=== PATIENT | male | born 1965 | race Caucasian/White ===

== ENCOUNTER 2019-07-28 11:40 | Inpatient (IN) | payer OTHER ==
--- NOTE | 2019-07-28 12:07 | PDOC ---
History of Present Illness - General Chief Complaint: Difficulty with Vision Stated Complaint: VISION ISSUE Time Seen by Provider: 07/28/19 12:05 - History of Present Illness Initial Comments: HPI: 54yo M with PMH of HTN (nonadherent to medication) presenting with difficulty with vision and feeling unwell x 6 months. Patient has been nonadherent to his amlodipine 10mg daily x 1 year because his prescription ran out. He has not seen a physician over that time. Endorses chest pain that he has frequently nearly every day. Reports shortness of breath that worsens with exertion. Cannot lay flat. Has never been evaluated by a [employer] crm developer. Patient's vision has changed such that he can no longer see well and visited an eye doctor a couple days ago. The doctor evaluated him and saw "blood behind his eyes." Patient was concerned about this in addition to continuing to feel unwell, so he decided to come to the ER for further evaluation. No recent falls or syncope. PCP: None ROS: Constitutional: no fever, no chills HEENT: no throat pain, +vision changes Cardiovascular: +chest pain, no palpitations Respiratory: no cough, +shortness of breath Gastrointestinal: no abdominal pain, no nausea Genitourinary: no dysuria, no hematuria Musculoskeletal: no myalgia, no arthralgia Skin: no rash, no itching Neurologic: +headache, +weakness Psych: no agitation, no anxiety PE: General: Awake, alert, and fully oriented, in no acute distress Head: No signs of trauma Eyes: EOMI, sclera anicteric ENT: Moist mucus membranes Neck: Normal ROM, supple Lungs: Lungs clear, Normal breath sounds Cardio: Regular rhythm, S1 and S2 present Abdomen: Soft, nontender. No guarding, no rebound, no masses Extremities: Normal range of motion, Distal pulses present, No calf tenderness, No BLE edema SKIN: Warm, Dry, normal turgor Neurologic: Cranial nerves II through XII intact. Normal speech, sensation, strength, coordination, and gait. ED Course/MDM: DDX including but not limited to HTN emergency vs urgency, ACS, anemia, metabolic derangement Labs, EKG, CXR Cardiac monitoring BP control: Goal MAP reduction of 25% 07/28/19 12:07 CBC WBC 12.9 K/mm3 (4.0-10.0) H 07/28/19 12:15 RBC 4.77 M/mm3 (4.00-5.60) 07/28/19 12:15 Hgb 15.2 GM/dL (11.7-16.9) 07/28/19 12:15 Hct 42.9 % (35.4-49) 07/28/19 12:15 MCV 90.0 fl (80-96) 07/28/19 12:15 MCH 32.0 pg (25.7-33.7) 07/28/19 12:15 MCHC 35.5 g/dl (32.0-35.9) 07/28/19 12:15 RDW 12.6 % (11.9-15.9) 07/28/19 12:15 Plt Count 265 K/MM3 (134-434) 07/28/19 12:15 MPV 8.9 fl (7.5-11.1) 07/28/19 12:15 Absolute Neuts (auto) 10.0 K/mm3 (1.5-8.0) H 07/28/19 12:15 Neutrophils % 77.0 % (42.8-82.8) 07/28/19 12:15 Lymphocytes % 13.7 % (8-40) 07/28/19 12:15 Monocytes % 6.5 % (3.8-10.2) 07/28/19 12:15 Eosinophils % 1.8 % (0-4.5) 07/28/19 12:15 Basophils % 1.0 % (0-2.0) 07/28/19 12:15 Nucleated RBC % 0 % (0-0) 07/28/19 12:15 Mild leukocytosis CMP Sodium 131 mmol/L (136-145) L 07/28/19 12:15 Chloride 90 mmol/L (98-107) L 07/28/19 12:15 Carbon Dioxide 32 mmol/L (21-32) 07/28/19 12:15 Anion Gap 9 MMOL/L (8-16) 07/28/19 12:15 BUN 27.2 mg/dL (7-18) H 07/28/19 12:15 Creatinine 2.1 mg/dL (0.55-1.3) H 07/28/19 12:15 Est GFR (CKD-EPI)AfAm 40.15 07/28/19 12:15 Est GFR (CKD-EPI)NonAf 34.64 07/28/19 12:15 Random Glucose 174 mg/dL (74-106) H 07/28/19 12:15 Calcium 9.3 mg/dL (8.5-10.1) 07/28/19 12:15 Total Bilirubin 0.6 mg/dL (0.2-1) 07/28/19 12:15 AST 16 U/L (15-37) 07/28/19 12:15 ALT 20 U/L (13-61) 07/28/19 12:15 Alkaline Phosphatase 137 U/L (45-117) H 07/28/19 12:15 Creatine Kinase 76 U/L (26-308) 07/28/19 12:15 Troponin I 0.11 ng/ml (0.00-0.05) H 07/28/19 12:15 B-Natriuretic Peptide 9543.7 pg/ml (5-125) H 07/28/19 12:15 Total Protein 7.5 g/dl (6.4-8.2) 07/28/19 12:15 Albumin 3.6 g/dl (3.4-5.0) 07/28/19 12:15 Cr elevated Tpn elevated; ASA ordered BNP elevated Patient with signs of end-organ damage CT Head: "EXAM#: TYPE/EXAM: RESULT: [id number] CT/HEAD CT WITHOUT CONTRAST History of hypertension with vision changes CT scan of the head without intravenous contrast No prior is available for comparison. There is mild volume loss and ventricular dilatation. Focal encephalomalacia seen in the right frontal lobe, anteriorly/inferiorly and probably a smaller focus of encephalomalacia in the left anterior/inferior frontal lobe There is focal low- attenuation density in the anterior right thalamus/periventricular white matter compatible with a chronic infarct. There is also likely a chronic left thalamic lacunar infarct. Focal low-attenuation density in the right frontal lobe at the level of the centrum semiovale suggestive of a chronic infarct. No mass lesion, gross acute infarct or intracranial hemorrhage are identified. There is no shift of the midline structures. Mild mucoperiosteal thickening is partially opacifying the ethmoid air cells with mild deviation of the nasal septum towards the left. The mastoid air cells are well aerated and the calvarium is intact IMPRESSION: Mild volume loss and ventricular dilatation. Focal encephalomalacia in the right anterior/inferior frontal lobe and possibly a smaller focus on the left. Focal chronic infarct in the anterior right thalamus/ periventricular white matter. Focal likely chronic infarct in the right centrum semiovale. No mass lesion or gross acute infarct are identified. Correlate clinically to determine further evaluation and follow-up Reported By: Woody Phelps MD 07/28/19 1354 " CXR: " EXAM#: TYPE/EXAM: RESULT: [id number] RAD/CHEST X- RAY PORTABLE* Chest pain. Hypertension. Portable chest x-ray. Comparison study none. No evidence of widening of the superior mediastinum. The cardiac silhouette is not enlarged. Mildly tortuous thoracic aorta. The lungs are well aerated without evidence of a pulmonary infiltrates, atelectasis. No evidence of blunting of the costophrenic angles. No large pleural effusion or pneumothorax is seen. The pulmonary vasculature is normal, no evidence of CHF, pulmonary edema. Intact visualized osseous structures. EKG leads are noted. Impression. No evidence of active pulmonary disease. Reported By: Preston Jaime MD 07/28/19 1353 " Last BP 181/127 after 20mg labetolol IV Another 20mg labetolol IV ordered 07/28/19 13:59 Call from lab, K=2.8 07/28/19 14:04 EKG: rate 75, QTc 502, possible ST elevations on V1/V2/V3 Dr. Magaña contacting the interventionalist Patient without active chest pain at this time 07/28/19 14:16 Dr. Magaña in consultation with interventionalist. Plan to obtain ECHO to determine if there is anterior wall abnormality. 07/28/19 14:47 Unofficial ECHO without anterior wall abnormality Dr. Magaña discussed case with cardiac interventionalist team. Patient is not a candidate for a transfer or STEMI activation. Findings on EKG likely LVH related to end-organ damage. Also question of anticoagulation in context of "blood behind the eyes" per patient's exam with eye doctor. Patient without any idea who was the eye doctor on [address] who saw him. Does not know name or phone number of this provider. To consult ICU. 07/28/19 15:14 ICU consulted; they will evaluate the patient MB sent 07/28/19 15:29 Dr. Magaña spoke with Dr. Chavez, clinical abstractor. Patient likely has a retinal artery/vein occlusion or hypertensive retinopathy, none of which contradicts anticoagulation 07/28/19 15:42 Patient is not an ICU candidate at this time per Dr. Lee Plan for admission for hypertensive emergency indicated by SBP greated than 180mm HG with evidence of acute target organ damage as indicated by myocardial ischemia (elevated troponin), elevated creatinine, and vision abnormalities. Awaiting callback from hospitalist team 07/28/19 15:48 BP 170/113 Transitioned to PO amlodipine 07/28/19 15:[address] Hall Pending repeat EKG and tpn 07/28/19 16:[address] Siddiqui regarding patient's admission 07/28/19 16:[address] Seaman, ICU resident. In consultation with the admitting team and cardiology, it was ultimately decided that the patient be admitted to the ICU for close BP monitoring Past History - Past Medical History Allergies/Adverse Reactions: Allergies Allergy/AdvReac Type Severity Reaction Status Date / Time No Known Allergies Allergy Verified 07/28/19 11:49 Home Medications: Ambulatory Orders NK [No Known Home Medication] 07/28/19 COPD: No HTN: Yes - Surgical History Cholecystectomy: No - Immunization History Immunization Up to Date: No - Psycho Social/Smoking Cessation Hx Smoking History: Former smoker Have you smoked in the past 12 months: No Information on smoking cessation initiated: No Hx Alcohol Use: No Drug/Substance Use Hx: No *Physical Exam - Vital Signs Last Vital Signs Temp Pulse Resp BP Pulse Ox 98.2 F 92 H 16 214/147 H 97 07/28/19 11:47 07/28/19 11:47 07/28/19 11:47 07/28/19 11:47 07/28/19 11:47 ED Treatment Course - LABORATORY CBC & Chemistry Diagram: 07/28/19 12:15 07/28/19 12:15 Discharge - Discharge Information Problems reviewed: Yes Clinical Impression/Diagnosis: Hypertensive emergency Condition: Guarded - Admission Yes - Follow up/Referral - Patient Discharge Instructions - Post Discharge Activity
[2019-07-28 12:37] LABS: EOS % 1.8 % (0-4.5); HEMATOCRIT 42.9 % (35.4-49); HEMOGLOBIN 15.2 GM/dL (11.7-16.9); LYMPH % 13.7 % (8-40); MCHC 35.5 g/dl (32.0-35.9); MEAN PLT VOLUME 8.9 fl (7.5-11.1); MONO % 6.5 % (3.8-10.2); PLATELET COUNT 265 K/MM3 (134-434); RBC 4.77 M/mm3 (4.00-5.60); RDW 12.6 % (11.9-15.9); WHITE BLOOD COUNT 12.9 K/mm3 (4.0-10.0)
[2019-07-28] MEDS ORDERED: LABETALOL HCL 5 MG/1 ML (100MG/20 ML VIAL) IVPUSH ONE ×3 (12:53→19:40)
[2019-07-28] MEDS ORDERED: LABETALOL HCL 5 MG/1 ML (200MG/40ML VIAL) IVPB ONE (12:55)
[2019-07-28 12:57] LABS: INR 1.03 (0.83-1.09); PROTHROMBIN TIME (PATIENT) 12.2 SEC (9.7-13.0)
[2019-07-28 13:18] LABS: ALBUMIN 3.6 g/dl (3.4-5.0); BILIRUBIN,TOTAL 0.6 mg/dL (0.2-1); BLOOD UREA NITROGEN 27.2 mg/dL (7-18); CALCIUM 9.3 mg/dL (8.5-10.1); CREATININE 2.1 mg/dL (0.55-1.3); N-TERMINAL BNP 9543.7 pg/ml (5-125); TOT PROT 7.5 g/dl (6.4-8.2)
[2019-07-28] MEDS ORDERED: ASPIRIN 81 MG CHEWABLE TABLETS PO ONE (13:54)
[2019-07-28 14:02] LABS: POTASSIUM 2.8 mmol/L (3.5-5.1)
[2019-07-28] MEDS ORDERED: POTASSIUM CHLORIDE TABS 10 MEQ TABLET.ER (FP) PO ONE (14:07)
[2019-07-28] MEDS ORDERED: POTASSIUM CHLORIDE TABS 20 MEQ TABLET.ER (FP) PO ONE ×4 (14:17→17:48)
[2019-07-28] MEDS ORDERED: ASPIRIN 81 MG CHEWABLE TABLETS ONE (14:17)
[2019-07-28] MEDS ORDERED: POTASSIUM CHLORIDE 20 MEQ PREMIX IVPB 100 ML IVPB ONE (15:39)
[2019-07-28] MEDS ORDERED: amLODIPine BESYLATE 5 MG TABLET (FP) PO ONE ×2 (15:49→17:50)
--- NOTE | 2019-07-28 15:56 | PDOC ---
Documentation entered by Inga Gee SCRIBE, acting as scribe for Pedro Magaña MD. Pedro Magaña MD: This documentation has been prepared by the Gerard friedman Brenda, SCRIBE, under my direction and personally reviewed by me in its entirety. I confirm that the documentation accurately reflects all work, treatment, procedures, and medical decision making performed by me. Attending Attestation - Resident Resident Name: Ayaka Kirk - ED Attending Attestation I have performed the following: I have examined & evaluated the patient, The case was reviewed & discussed with the resident, I agree w/resident's findings & plan, Exceptions are as noted - HPI HPI: 07/28/19 12:59 The patient is a 54 year old male with a significant PMH of HTN who presents to the ED for evaluation of difficulty with vision for the past 6 months and feeling generally unwell. Patient reports not being compliant with his HTN medications (amlodipine), due to his prescription running out. Patient notes that he has not seen a medical doctor during that time. Patient endoeses a constant chest pain along with SOB which is aggravated by exertion he also notes orthnopea. Allergies: NKA PCP: No PCP. - Physicial Exam PE: 07/28/19 15:50 Vitals: Triage Vital signs reviewed General Appearance: No acute distress, well nourished well developed, Head: Atraumatic, Eyes: Pupils equal reactive round, extraocular movement intact Cardiac: Regular rate and rhythym, Lungs: Clear to auscultation bilateral, good air movement bilaterally, Abdomen: Soft, non distended, normal bowel sounds, non tender to palpation Extremities: Full range of motion to all extremities, no cyanosis, clubbing, or edema Skin: Warm and dry, no rashes or lesions, no rash, no petechiae Neuro: AOX3; cranial Nerves 2-12 grossly intact, strength intact to all extremities, sensation intact to all extremities, gait normal Psych: Normal mood, normal affect - Critical Care Time Total Critical Care Time: 65 Critical Care Statement: The care of this patient involved high complexity decision making to prevent further life threatening deterioration of the patient 's condition and/or to evaluate & treat vital organ system(s) failure or risk of failure. - Medical Decision Making 07/28/19 15:55 54 years old 4-month history of blurry vision no PCP saw a transport tech? Yesterday was told he had "blood behind the eye" need to see a medical doctor Also complaining of mild headache noncompliance with hypertensive medication as well as intermittent nonexertional substernal nonradiating mild chest discomfort currently chest pain-free a stat head CT was ordered which demonstrated no acute hemorrhage Interpreted by me A stat EKG was ordered which demonstrated Left axis deviation left ventricular hypertrophy with repull abnormalities questionable repull abnormalities versus ST elevations with ST depressions inferiorly EKG was sent to interventional list at [facility] a stat bedside echo was performed patient determined on the consultation of Dr. Bernard interventional not to be a candidate for acute catheterization likely changes are secondary to hypertensive emergency/chronic hypertension Laboratory analysis notable for detectable troponin elevated creatinine and low potassium Potassium repleted Case discussed with Dr. Chavez ophthalmology no indication for emergent ophthalmologic evaluation most likely patient suffers from either a venous or arterial retinal occlusion versus hypertensive retinopathy which needs to be followed as an outpatient no contraindications per Dr. Chavez to anticoagulation Aspirin given patient's blood pressure controlled with 2 doses IV labetalol now transitioned to p.o. amlodipine Cardiology has been consulted ICU has been consulted. Not a candidate for ICU at this time We will admit to medicine under telemetry for hypertensive emergency Cardiology consultation and further management. Heart Score/ECG Review - ECG Impressions Comment:: 07/28/19 15:55 EKG demonstrates left ventricular hypertrophy with repolarization abnormal ST depressions inferiorly laterally with T wave inversions Interpreted by me
[2019-07-28] MEDS ORDERED: amLODIPine BESYLATE 5 MG TABLET (FP) ONE ×2 (15:59→18:14)
[2019-07-28] MEDS ORDERED: KCL 10 MEQ IVPB 10 MEQ/100 ML INFUS.BAG IVPB ONE ×2 (15:59→17:49)
[2019-07-28] MEDS: KCL 10 MEQ IVPB 10 MEQ/100 ML INFUS.BAG IVPB SCH ×4 (16:12→18:09)
--- NOTE | 2019-07-28 16:12 | ECHO ---
Name: PEDRO IZQUIERDO Exam:Adult Echocardiogram Study Date: 07/28/2019 02:50 PM Age: 54 yrs Reason For Study: Look for Ant Wall Abnormalities Height: 68 in Weight: 170 lb BSA: 1.9 m2 MMode/2D Measurements & Calculations IVSd: 2.0 cm Ao root diam: 3.0 cm LVIDd: 4.0 cm LA dimension: 4.3 cm LVIDs: 2.7 cm ACS: 1.9 cm LVPWd: 2.0 cm EDV(Teich): 69.5 ml LVOT diam: 2.0 cm ESV(Teich): 27.9 ml LVLd ap4: 8.4 cm SV(MOD-sp4): 64.0 ml EDV(MOD-sp4): 113.0 ml LVLs ap4: 7.2 cm ESV(MOD-sp4): 49.0 ml LAV (MOD-bp): 54.0 ml TAPSE: 2.0 cm RV S Jaya: 10.7 cm/sec Doppler Measurements & Calculations MV E max jaya: 59.2 cm/sec Ao V2 max: 157.5 cm/sec MV A max jaya: 85.4 cm/sec Ao max P.9 mmHg MV E/A: 0.69 Ao V2 mean: 102.2 cm/sec MV dec time: 0.20 sec Ao mean P.0 mmHg Ao V2 VTI: 25.9 cm LENA(I,D): 1.8 cm2 LENA(V,D): 2.0 cm2 LV V1 max P.9 mmHg SV(LVOT): 47.8 ml LV V1 mean P.6 mmHg LV V1 max: 98.2 cm/sec LV V1 mean: 57.0 cm/sec LV V1 VTI: 15.0 cm PA V2 max: 81.4 cm/sec Med Peak E' Jaya: 3.9 cm/sec PA max P.7 mmHg Med E/e': 15.2 Lat Peak E' Jaya: 4.0 cm/sec Lat E/e': 14.8 Pulm Sys Jaya: 53.3 cm/sec Pulm Hameed Ajya: 33.6 cm/sec Pulm S/D: 1.6 Procedure A complete two-dimensional transthoracic echocardiogram was performed (2D, M-mode, Doppler and color flow Doppler). Left Ventricle There is moderate concentric left ventricular hypertrophy. The left ventricular ejection fraction is normal. Ejection Fraction = 55-60%. No regional wall motion abnormalities noted. Right Ventricle The right ventricle is normal in size and function. Atria Normal left and right atrial size and function. Mitral Valve There is trace mitral regurgitation. Tricuspid Valve No tricuspid regurgitation. Aortic Valve No hemodynamically significant valvular aortic stenosis. No aortic regurgitation is present. Pulmonic Valve There is no pulmonic valvular regurgitation. Great Vessels The aortic root is normal size. Pericardium/Pleura There is no pericardial effusion. Interpretation Summary There is moderate concentric left ventricular hypertrophy. The left ventricular ejection fraction is normal. The right ventricle is normal in size and function. There is trace mitral regurgitation. MD Pedro Elise 07/28/2019 04:12 PM
--- NOTE | 2019-07-28 17:16 | HP ---
CHIEF COMPLAINT: Frontal Headache and blurry vision PCP: None HISTORY OF PRESENT ILLNESS: Pt. is a 54 y.o. M w/ PMHx. of HTN (however Pt. does not take any medications) presents for worsening blurry vision and headache. Pt. states that he came to the ER because he was not able to see objects. Pt. states that this has been going on for the last 6 months but has been getting worse recently and he decided it was time to address it. Pt. states he recently saw an Survey Chief and was told he had "blood in his eye. " Pt. denies any chest pain currently but states that he has chest pain about 4 times a year. Pt. endorses shortness of breath and diaphoresis (just after starting IV KCL). Pt. denies having a primary care doctor or taking any medications for pain at home. Pt. states he had a colonoscopy ~15 years ago at the request of his ex-, does not remember the results. Pt. did not have the flu shot. Pt. endorses difficulty achieving and maintaining erections. ER course was notable for: (1) Norvasc 5 mg, (2) ASA 324mg, KCL 40 mg PO, KCL 20 meq (not completed) (3) Labetalol 20mg Recent Travel: No PAST MEDICAL HISTORY: HTN PAST SURGICAL HISTORY: Appendectomy Social History: SmokinPPD x 10 years, Quit 1 month ago Alcohol: 2 Martinis / week Drugs: Denies Pt. Lives alone at home. 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 Family Hx. of [place] in father at 52, from [place] Allergies No Known Allergies Allergy (Verified 07/28/19 11:49) HOME MEDICATIONS: Home Medications Medication Instructions Recorded NK [No Known Home Medication] 07/28/19 REVIEW OF SYSTEMS As above PHYSICAL EXAMINATION Vital Signs - 24 hr 07/28/19 07/28/19 07/28/19 11:47 13:06 13:37 Temperature 98.2 F Pulse Rate 92 H Pulse Rate [ 75 76 Apical] Respiratory 16 16 Rate Blood Pressure 214/147 H Blood Pressure 190/121 H 181/127 H [Right Arm] O2 Sat by Pulse 97 100 Oximetry (%) 07/28/19 14:38 Temperature Pulse Rate Pulse Rate [ 76 Apical] Respiratory 18 Rate Blood Pressure Blood Pressure 170/113 H [Right Arm] O2 Sat by Pulse Oximetry (%) GENERAL: Awake, alert, and fully oriented, in no acute distress. HEAD: Normal with no signs of trauma. EYES: Pupils equal, round and reactive to light, extraocular movements intact, sclera anicteric, conjunctiva clear. EARS, NOSE, THROAT: Ears normal, nares patent, oropharynx clear without exudates. Moist mucous membranes. NECK: Normal range of motion, supple without lymphadenopathy, JVD, or masses. LUNGS: Breath sounds equal, clear to auscultation bilaterally. No wheezes, and no crackles. No accessory muscle use. HEART: Regular rate and rhythm, normal S1 and S2 without murmur ABDOMEN: Soft, nontender, not distended, normoactive bowel sounds, no guarding, no rebound, no masses. MUSCULOSKELETAL: Normal range of motion at all joints. No bony deformities or tenderness. No CVA tenderness. UPPER EXTREMITIES: 2+ radial pulses, warm, well-perfused. No cyanosis. No clubbing. No peripheral edema. LOWER EXTREMITIES: 2+ dorsal pedal pulses equal, warm, well-perfused. No calf tenderness. No peripheral edema. NEUROLOGICAL: Normal speech. No focal deficits. Per RN note Pt. has steady gait. PSYCHIATRIC: Cooperative. Good eye contact. Appropriate mood and affect. SKIN: Warm, Diaphoretic Laboratory Results - last 24 hr 07/28/19 07/28/19 07/28/19 12:15 12:15 12:15 WBC 12.9 H RBC 4.77 Hgb 15.2 Hct 42.9 MCV 90.0 MCH 32.0 MCHC 35.5 RDW 12.6 Plt Count 265 MPV 8.9 Absolute Neuts (auto) 10.0 H Neutrophils % 77.0 Lymphocytes % 13.7 Monocytes % 6.5 Eosinophils % 1.8 Basophils % 1.0 Nucleated RBC % 0 PT with INR 12.20 INR 1.03 Sodium 131 L Potassium 2.8 L* Chloride 90 L Carbon Dioxide 32 Anion Gap 9 BUN 27.2 H Creatinine 2.1 H Est GFR (CKD-EPI)AfAm 40.15 Est GFR (CKD-EPI)NonAf 34.64 Random Glucose 174 H Calcium 9.3 Total Bilirubin 0.6 AST 16 ALT 20 Alkaline Phosphatase 137 H Creatine Kinase 76 Troponin I 0.11 H B-Natriuretic Peptide 9543.7 H Total Protein 7.5 Albumin 3.6 Triglycerides Cholesterol Total LDL Cholesterol HDL Cholesterol TSH 07/28/19 07/28/19 16:10 16:10 WBC RBC Hgb Hct MCV MCH MCHC RDW Plt Count MPV Absolute Neuts (auto) Neutrophils % Lymphocytes % Monocytes % Eosinophils % Basophils % Nucleated RBC % PT with INR INR Sodium Potassium Chloride Carbon Dioxide Anion Gap BUN Creatinine Est GFR (CKD-EPI)AfAm Est GFR (CKD-EPI)NonAf Random Glucose Calcium Total Bilirubin AST ALT Alkaline Phosphatase Creatine Kinase Troponin I 0.12 H B-Natriuretic Peptide Total Protein Albumin Triglycerides 146 Cholesterol 265 H Total LDL Cholesterol 189 H HDL Cholesterol 49 TSH 1.86 ASSESSMENT/PLAN: Pt. is a 54 y.o. M w/ PMHx. of HTN (however Pt. does not take any medications) presents for worsening blurry vision and headache. Pt. admitted for Hypertensive Emergency #Hypertensive Emergency vs. STEMI s/p Labetalol 20mg x 2 and Norvasc 5mg Initial BP 214/147--> now 157/95 Echo: Moderate concentric LVH, LV size, thickness and fxn wnl, EF: 55-60%, mild TR Will monitor in ICU and maintain SBP within 150-180 for the initial 24 hours, PRN order for Norvasc 5mg placed if BP goes above 180 Given ASA 324mg Trop: 0.11-->0.12; f/u Trop Q3H w/ EKG; please call Dr. Sweeney learning consultant if there are any EKG changes. EKG showed evolving changes with ST elevations in V1-V2, now in V1-V4. Per ED discussion with osteopathic medicine teacher, and Dr. Linares Pt. likely has EKG changes related to Hypertensive emergency and is not a candidate for transfer. Consult to Dr. Okeefe appreciated, per f/u VS Q2H f/u Utox Avoid Beta blockers Head CT negative for acute pathology CXR negative for acute pathology BNP: 9,593 #MEY? on CKD f/u UA to assess for proteiuria, if present Pt. would benefit from SANDY/ARB Consult to Dr. Becerra appreciated Pt. is currently hypertensive, would control BP first and then after resolution would hydrate to attain Pt.s true renal function Trend BMP f/u A1c as Glucose elevated to 174 #HLD Cholesterol: 265 Will start Atorvastatin 40mg HS #FEN no IVF, encourage PO intake K: 2.8, repleting potassium , f/u Magnesium level, f/u BMP in AM and replete as needed, mild hyponatremia to 131, f.u Rpt. Na controlled Diet #DVT Ppx. Hep SQ Visit type - Emergency Visit Emergency Visit: Yes ED Registration Date: 07/28/19 Care time: The patient presented to the Emergency Department on the above date and was hospitalized for further evaluation of their emergent condition. - New Patient This patient is new to me today: Yes Date on this admission: 07/28/19 - Critical Care Critical Care patient: Yes Total Critical Care Time (in minutes): 45 Critical Care Statement: The care of this patient involved high complexity decision making to prevent further life threatening deterioration of the patient 's condition and/or to evaluate & treat vital organ system(s) failure or risk of failure. ATTENDING PHYSICIAN STATEMENT I saw and evaluated the patient. I reviewed the resident's note and discussed the case with the resident. I agree with the resident's findings and plan as documented. SUBJECTIVE: OBJECTIVE: ASSESSMENT AND PLAN:
[2019-07-28] MEDS ORDERED: amLODIPine BESYLATE 5 MG TABLET (FP) PO PRN (17:50)
[2019-07-28 19:25] LABS: MAGNESIUM 2.4 mg/dL (1.8-2.4)
[2019-07-28] MEDS ORDERED: LABETALOL HCL 5 MG/1 ML (100MG/20 ML VIAL) IVPUSH PRN ×2 (20:21→20:45)
--- NOTE | 2019-07-28 20:21 | PN ---
Teaching Attending Note Name of Resident: Hima Siddiqui ATTENDING PHYSICIAN STATEMENT I saw and evaluated the patient. I reviewed the resident's note and discussed the case with the resident. I agree with the resident's findings and plan as documented. 54 y.o. Male w/ h/o uncontrolled HTN (non-compliant w/ past meds), presents for worsening blurry vision and headache. Patient endorses several months of intermittent blurry vision and occasional chest pain and SOB on exertion. He saw eye doctor recently who told him he may have "bleeding behind the eye" and to seek medical attn. Patient currently endorses some SOB but denies overt CP. In the ED pt. found to have concerning EKG changes with slight ST elevations in leads V1-V3, trops. 0.11>>0.12 (after trend) a/w HTN emergency 217/145. Patient given pushes of IV labatelol and PO Norvasc 5 w/ improvement of BP to 150s systolic. Patient admitted for HTN emergency with heart strain, MEY, and vision changes. Cardiology consulted and aware of patient and deemed he does not fit criteria for urgent transfer for PCI/cardiac cath center. PE GA comfortable, AAox3, speaking in full sentences HEENT NC/AT, EOMI, no JVD, neck supple, MMM, clear conjunctiva Chest CTAB, no wheezing or crackles CVS S1, S2+, no audible S3, no m/r/g appreciated Abd Soft, NT, ND, BS+, no guarding or HSM Ext No LE edema, no calf tenderness, moves all 4 extremities, good pulses UE and LE Vital Signs - 24 hr 07/28/19 07/28/19 07/28/19 11:47 13:06 13:37 Temperature 98.2 F Pulse Rate 92 H Pulse Rate [ 75 76 Apical] Respiratory 16 16 Rate Blood Pressure 214/147 H Blood Pressure 190/121 H 181/127 H [Right Arm] O2 Sat by Pulse 97 100 Oximetry (%) 07/28/19 07/28/19 07/28/19 14:38 17:31 18:40 Temperature Pulse Rate Pulse Rate [ 76 77 74 Apical] Respiratory 18 18 14 Rate Blood Pressure Blood Pressure 170/113 H 152/98 183/118 H [Right Arm] O2 Sat by Pulse 97 96 Oximetry (%) Laboratory Tests 07/28/19 07/28/1920 12:15 12:15 12:15 WBC 12.9 H RBC 4.77 Hgb 15.2 Hct 42.9 MCV 90.0 MCH 32.0 MCHC 35.5 RDW 12.6 Plt Count 265 MPV 8.9 Absolute Neuts (auto) 10.0 H Neutrophils % 77.0 Lymphocytes % 13.7 Monocytes % 6.5 Eosinophils % 1.8 Basophils % 1.0 Nucleated RBC % 0 PT with INR 12.20 INR 1.03 Sodium 131 L Potassium 2.8 L* Chloride 90 L Carbon Dioxide 32 Anion Gap 9 BUN 27.2 H Creatinine 2.1 H Est GFR (CKD-EPI)AfAm 40.15 Est GFR (CKD-EPI)NonAf 34.64 Random Glucose 174 H Hemoglobin A1c % Calcium 9.3 Magnesium Total Bilirubin 0.6 AST 16 ALT 20 Alkaline Phosphatase 137 H Creatine Kinase 76 Troponin I 0.11 H B-Natriuretic Peptide 9543.7 H Total Protein 7.5 Albumin 3.6 Triglycerides Cholesterol Total LDL Cholesterol HDL Cholesterol TSH 07/28/19 07/28/19 07/28/19 12:15 16:10 16:10 WBC RBC Hgb Hct MCV MCH MCHC RDW Plt Count MPV Absolute Neuts (auto) Neutrophils % Lymphocytes % Monocytes % Eosinophils % Basophils % Nucleated RBC % PT with INR INR Sodium Potassium Chloride Carbon Dioxide Anion Gap BUN Creatinine Est GFR (CKD-EPI)AfAm Est GFR (CKD-EPI)NonAf Random Glucose Hemoglobin A1c % 6.3 Calcium Magnesium 2.4 Total Bilirubin AST ALT Alkaline Phosphatase Creatine Kinase Troponin I 0.12 H B-Natriuretic Peptide Total Protein Albumin Triglycerides 146 Cholesterol 265 H Total LDL Cholesterol 189 H HDL Cholesterol 49 TSH 1.86 Home Medications Medication Instructions Recorded NK [No Known Home Medication] 07/28/19 Current Medications Generic Name Dose Route Start Last Admin Trade Name Freq PRN Reason Stop Dose Admin Aspirin 81 mg 07/29/19 10:00 Asa - PO DAILY [facility] Atorvastatin Calcium 40 mg 07/28/19 22:00 Lipitor - PO HS [facility] Chlorhexidine Gluconate 1 applic 07/28/19 22:00 Hibiclens For Decolonization - TP HS [facility] Heparin Sodium (Porcine) 5,000 unit 07/28/19 22:00 Heparin - SQ TID [facility] Mupirocin 1 applic 07/28/19 22:00 Bactroban Ointment (For Decolonization) - NS 08/02/19 21:59 BID ADALID A/P: 54 M h/o HTN (non-compliant w/ meds), ?hypertensive retinopathy, and ?CKD no baseline labs to compare with, admitted for HTN emergency with MEY, heart strain and blurry vision. HTN emergency v.s. ACS trend trops/EKG Q2-4H, if clinical status deteriorates notify Dr. Del Rosario ( mold holder java web application developer) and transfer to PCI center if clinically indicated Echo did not show regional wall abnormalities, grossly normal EF, with LVH changes, trops 0.11 to 0.12 (after trend) Cont. ASA 81mg daily, load with Atorvastatin 80mg daily Control BP to maintain <180/110 ICU monitoring, frequent neurochecks Send A1c, TSH, lipid panel, urine toxicology Cardiology consult: Dr Linares MEY v.s. CKD gentle hydration, avoid nephrotoxins repeat CRE, if remains elevated obtain Renal/Bladder Sono, urine lytes Obtain AM renin/sowmya levels in view of uncontrolled HTN and hypokalemia (SANDY/ ARB not given) Renal consult : Dr Becerra Hypokalemia replete aggressively trend chem follow renin/sowmya levels FEN: gentle IV hydration, trend trops/lytes, Na restricted diet ICu monitoring DVT ppx: Heparin SC Addendum: Spoke with Dr. Linares from cardiology service, discussed concerning EKG findings of ?STEMI. As per Dr. Linares's impression, on a cardiology standpoint patient is unlikely having ACS/STEMI but rather findings of acute heart strain from uncontrolled HTN, recommended we trend trops to document peak, monitor EKG and clinical status and if a significant change in clinical status should occur to notify Dr. Del Rsoario (overnight mold holder java web application developer). For now patient does not meet criteria for transfer to a tertiary cardiac center. Notified ICU team of plan.
--- NOTE | 2019-07-28 21:58 | CONSULT ---
Consultation: REQUESTING PROVIDER: Dr. Magaña CONSULT REQUEST: We have been asked to medically evaluate this patient for hypertensive emergency. HISTORY OF PRESENT ILLNESS: 54 yo M PMH HTN (last took amlodipine 1 year ago, not taking any meds currently), presents for worsening blurry vision. Reports worsening vision over the last 6 months but has been getting worse recently Recently saw an learning administrator and was reportedly told he had "blood in his eye." Endorses intermittent chest pain over the past several months, last 3 days ago, but does endorse shortness of breath. REVIEW OF SYSTEMS: CONSTITUTIONAL: denies fever, chills, diaphoresis, generalized weakness, malaise, loss of appetite, weight change HEENT: denies rhinorrhea, nasal congestion, throat pain, throat swelling, difficulty swallowing, mouth swelling, ear pain, eye pain, visual changes CARDIOVASCULAR: denies current chest pain, syncope, palpitations, irregular heart rate, lightheadedness, peripheral edema RESPIRATORY: endorses SOB and CACERES. Denies cough, orthopnea, wheezing, stridor, hemoptysis GASTROINTESTINAL: denies abdominal pain, abdominal distension, nausea, vomiting, diarrhea, constipation, melena, hematochezia GENITOURINARY: denies dysuria, frequency, urgency, hesitancy, hematuria, flank pain, genital pain MUSCULOSKELETAL: denies myalgia, arthralgia, joint swelling, back pain, neck pain SKIN: denies rash, itching, pallor HEMATOLOGIC/IMMUNOLOGIC: denies easy bleeding, easy bruising, lymphadenopathy, frequent infections ENDOCRINE: denies unexplained weight gain, unexplained weight loss, heat intolerance, cold intolerance NEUROLOGIC: endorses headache. Endorses focal weakness or paresthesias, d izziness, unsteady gait, seizure, mental status changes, bladder or bowel incontinence PSYCHIATRIC: denies anxiety, depression, suicidal or homicidal ideation, hallucinations PHYSICAL EXAMINATION Vital Signs - 24 hr 07/28/19 07/28/19 07/28/19 11:47 13:06 13:37 Temperature 98.2 F Pulse Rate 92 H Pulse Rate [ 75 76 Apical] Respiratory 16 16 Rate Blood Pressure 214/147 H Blood Pressure 190/121 H 181/127 H [Right Arm] O2 Sat by Pulse 97 100 Oximetry (%) 07/28/19 07/28/19 07/28/19 14:38 17:31 18:40 Temperature Pulse Rate Pulse Rate [ 76 77 74 Apical] Respiratory 18 18 14 Rate Blood Pressure Blood Pressure 170/113 H 152/98 183/118 H [Right Arm] O2 Sat by Pulse 97 96 Oximetry (%) GENERAL: Awake, alert, and fully oriented, in no acute distress. HEAD: Normal with no signs of trauma. EYES: Pupils equal, round and reactive to light, extraocular movements intact, sclera anicteric, conjunctiva clear. No lid lag EARS, NOSE, THROAT: Ears normal, nares patent, oropharynx clear without exudates. Moist mucous membranes NECK: Normal range of motion, supple without lymphadenopathy, JVD, or masses LUNGS: Breath sounds equal, clear to auscultation bilaterally. No wheezes, and no crackles. No accessory muscle use HEART: Regular rate and rhythm, normal S1 and S2 without murmur, rub or gallop ABDOMEN: Soft, nontender, not distended, normoactive bowel sounds, no guarding, no rebound, no masses MUSCULOSKELETAL: Normal range of motion at all joints. No bony deformities or tenderness. No CVA tenderness UPPER EXTREMITIES: 2+ pulses, warm, well-perfused. No cyanosis. No clubbing. Cap refill <2 seconds. No peripheral edema LOWER EXTREMITIES: 2+ pulses, warm, well-perfused. No calf tenderness. No peripheral edema NEUROLOGICAL: Cranial nerves II-XII intact. Normal speech. Normal gait PSYCHIATRIC: Cooperative. Good eye contact. Appropriate mood and affect SKIN: Warm, dry Laboratory Results - last 24 hr 07/28/19 07/28/19 07/28/19 12:15 12:15 12:15 WBC 12.9 H RBC 4.77 Hgb 15.2 Hct 42.9 MCV 90.0 MCH 32.0 MCHC 35.5 RDW 12.6 Plt Count 265 MPV 8.9 Absolute Neuts (auto) 10.0 H Neutrophils % 77.0 Lymphocytes % 13.7 Monocytes % 6.5 Eosinophils % 1.8 Basophils % 1.0 Nucleated RBC % 0 PT with INR 12.20 INR 1.03 Sodium 131 L Potassium 2.8 L* Chloride 90 L Carbon Dioxide 32 Anion Gap 9 BUN 27.2 H Creatinine 2.1 H Est GFR (CKD-EPI)AfAm 40.15 Est GFR (CKD-EPI)NonAf 34.64 Random Glucose 174 H Hemoglobin A1c % Calcium 9.3 Magnesium Total Bilirubin 0.6 AST 16 ALT 20 Alkaline Phosphatase 137 H Creatine Kinase 76 Troponin I 0.11 H B-Natriuretic Peptide 9543.7 H Total Protein 7.5 Albumin 3.6 Triglycerides Cholesterol Total LDL Cholesterol HDL Cholesterol TSH 07/28/19 07/28/19 07/28/19 12:15 16:10 16:10 WBC RBC Hgb Hct MCV MCH MCHC RDW Plt Count MPV Absolute Neuts (auto) Neutrophils % Lymphocytes % Monocytes % Eosinophils % Basophils % Nucleated RBC % PT with INR INR Sodium Potassium Chloride Carbon Dioxide Anion Gap BUN Creatinine Est GFR (CKD-EPI)AfAm Est GFR (CKD-EPI)NonAf Random Glucose Hemoglobin A1c % 6.3 Calcium Magnesium 2.4 Total Bilirubin AST ALT Alkaline Phosphatase Creatine Kinase Troponin I 0.12 H B-Natriuretic Peptide Total Protein Albumin Triglycerides 146 Cholesterol 265 H Total LDL Cholesterol 189 H HDL Cholesterol 49 TSH 1.86 07/28/19 21:00 WBC RBC Hgb Hct MCV MCH MCHC RDW Plt Count MPV Absolute Neuts (auto) Neutrophils % Lymphocytes % Monocytes % Eosinophils % Basophils % Nucleated RBC % PT with INR INR Sodium Potassium Chloride Carbon Dioxide Anion Gap BUN Creatinine Est GFR (CKD-EPI)AfAm Est GFR (CKD-EPI)NonAf Random Glucose Hemoglobin A1c % Calcium Magnesium Total Bilirubin AST ALT Alkaline Phosphatase Creatine Kinase 60 Troponin I 0.09 H B-Natriuretic Peptide Total Protein Albumin Triglycerides Cholesterol Total LDL Cholesterol HDL Cholesterol TSH Active Medications Generic Name Dose Route Start Last Admin Trade Name Freq PRN Reason Stop Dose Admin Aspirin 81 mg 07/29/19 10:00 Asa - PO DAILY [facility] Atorvastatin Calcium 40 mg 07/28/19 22:00 Lipitor - PO HS [facility] Chlorhexidine Gluconate 1 applic 07/28/19 22:00 Hibiclens For Decolonization - TP HS [facility] Heparin Sodium (Porcine) 5,000 unit 07/28/19 22:00 Heparin - SQ TID ADALID Labetalol HCl 10 mg 07/28/19 20:45 Normodyne Injection - IVPUSH Q4H PRN HYPERTENSION Mupirocin 1 applic 07/28/19 22:00 Bactroban Ointment (For Decolonization) - NS 08/02/19 21:59 BID ADALID ASSESSMENT/PLAN: 54 yo M who does not see doctors, PMH HTN, presenting with elevated BP in 210s/140s and blurry vision, consistent with hypertensive emergency. Neuro: - patient endorses intermittent headaches, not having currently - awake, alert, oriented - no focal deficits - CT head: focal encephalomalacia in R anterior/inferior frontal lobe and possibly a smaller focus on the left. 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 Focal likely chronic infarct in the R centrum semiovale. No mass lesion or gross acute infarct. CV: - hx HTN not on meds - BPs initially in 210s systolic - s/p labetalol 20mg X2 in ED, once in ICU - s/p amlodipine 5mg PO X2 in ED - labetalol 10mg IV PRN Q4h for systolic BP of 180 or higher - EKG with inferolateral ST depressions and T wave inversions, LVH, with no priors - patient not a cath candidate - Per cards, repeat trop and repeat EKG q3h - trop 0.11/0.12/0.09 - repeat EKG unchanged - patient denying chest pain at any time today - Cards following (Dr. Sweeney) Respiratory: - reportedly SOB and CACERES - satting well GI: - no acute concerns Renal: - Cr 2.1 to 2.4, unknown baseline - K 2.8 to 3.2 s/p 80 PO KCl - ordered for 80 more PO KCl - concern for possible renal artery stenosis or Conn's disease - renal consulted, appreciate recs Endo: - Cholesterol: 265 - Atorvastatin 40mg HS FENLTD: - no IVF - sodium controlled diet - replete lytes PRN Dispo: We will continue to follow the patient. Thank you for this consultative opportunity. Visit type - Emergency Visit Emergency Visit: Yes ED Registration Date: 07/28/19 Care time: The patient presented to the Emergency Department on the above date and was hospitalized for further evaluation of their emergent condition. - New Patient This patient is new to me today: Yes Date on this admission: 07/28/19 - Critical Care Critical Care patient: Yes Total Critical Care Time (in minutes): 45 Critical Care Statement: The care of this patient involved high complexity decision making to prevent further life threatening deterioration of the patient's condition and/or to evaluate & treat vital organ system(s) failure or risk of failure. ATTENDING PHYSICIAN STATEMENT I saw and evaluated the patient. I reviewed the resident's note and discussed the case with the resident. I agree with the resident's findings and plan as documented. SUBJECTIVE: OBJECTIVE: ASSESSMENT AND PLAN:
[2019-07-28 22:11] LABS: BLOOD UREA NITROGEN 31.6 mg/dL (7-18); CALCIUM 8.9 mg/dL (8.5-10.1); CREATININE 2.4 mg/dL (0.55-1.3); POTASSIUM 3.2 mmol/L (3.5-5.1)
[2019-07-28] MEDS ORDERED: POTASSIUM CHLORIDE ORAL LIQUID 20 MEQ/15 ML PO ONE ×2 (22:18→22:19)
[2019-07-28] MEDS: MUPIROCIN 2% TOPICAL OINTMENT FOR DECOLONIZATION NS SCH (22:20)
[2019-07-28] MEDS: HEPARIN NA (PORCINE) 5,000 UNITS/ML 1ML VIAL SQ SCH (22:21)
[2019-07-28] MEDS: ATORVASTATIN CA 40 MG TABLET (FP) PO SCH (22:22)
[2019-07-28] MEDS: CHLORHEXIDINE GLUCONATE 4% CLEANSER FOR DECOLONIZATION TP SCH (22:22)
[2019-07-28 23:00] LABS: EPI CELLS 1.3 /HPF (0-5/HPF); HYALINE CASTS 6 /lpf (0-8); PH,URINE 5.5 (5.0-8.0); URINE APPEARANCE CLEAR; URINE BACTERIA 1.2 /hpf (NEGATIVE); URINE BILIRUBIN NEGATIVE (NEGATIVE); URINE COLOR YELLOW; URINE GLUCOSE (UA) TRACE (NEGATIVE); URINE KETONE NEGATIVE (NEGATIVE); URINE LEUK ESTERASE NEGATIVE (NEGATIVE); URINE NITRITE NEGATIVE (NEGATIVE); URINE PROTEIN 3+ (NEGATIVE); URINE RBC 1 /hpf (0-4); URINE UROBILINOGEN 0.2 mg/dL (0.2-1.0); URINE WBC 1 /hpf (0-5)
[2019-07-28 23:08] LABS: COCAINE, UR NEGATIVE ng/ml (CUTOFF=300); METHADONE, UR NEGATIVE ng/ml (CUTOFF=300); OPIATES, URI NEGATIVE ng/ml (CUTOFF=300); PHENCYCLIDINE,URINE NEGATIVE ng/ml (CUTOFF=25); URINE AMPHETAMINES NEGATIVE ng/ml (CUTOFF=500); URINE BARBITURATES NEGATIVE ng/ml (CUTOFF=200); URINE BENZODIAZEPINES NEGATIVE ng/ml (CUTOFF=200)
[2019-07-29] MEDS: HEPARIN NA (PORCINE) 5,000 UNITS/ML 1ML VIAL SQ SCH ×3 (06:23→21:15)
[2019-07-29 06:44] LABS: BASO % 0.8 % (0-2.0); HEMATOCRIT 36.6 % (35.4-49); HEMOGLOBIN 13.2 GM/dL (11.7-16.9); LYMPH % 26.2 % (8-40); MCH 32.9 pg (25.7-33.7); MCHC 36.1 g/dl (32.0-35.9); MONO % 9.6 % (3.8-10.2); NEUT % 59.4 % (42.8-82.8); PLATELET COUNT 254 K/MM3 (134-434); RBC 4.02 M/mm3 (4.00-5.60); RDW 12.8 % (11.9-15.9); WHITE BLOOD COUNT 10.1 K/mm3 (4.0-10.0)
[2019-07-29 06:51] LABS: INR 1.03 (0.83-1.09); PROTHROMBIN TIME (PATIENT) 12.2 SEC (9.7-13.0)
[2019-07-29 06:57] LABS: BLOOD UREA NITROGEN 35.8 mg/dL (7-18); CALCIUM 8.9 mg/dL (8.5-10.1); CREATININE 2.4 mg/dL (0.55-1.3); POTASSIUM 3.1 mmol/L (3.5-5.1)
[2019-07-29 07:03] LABS: BILIRUBIN,TOTAL 0.4 mg/dL (0.2-1); BLOOD UREA NITROGEN 31.9 mg/dL (7-18); CALCIUM 8.9 mg/dL (8.5-10.1); CREATININE 2.5 mg/dL (0.55-1.3); MAGNESIUM 2.3 mg/dL (1.8-2.4); PHOSPHOROUS 4.2 mg/dL (2.5-4.9); POTASSIUM 3.1 mmol/L (3.5-5.1); TOT PROT 6.5 g/dl (6.4-8.2)
[2019-07-29] MEDS ORDERED: NIFEdipine E.R. 30 MG TABLET PO SCH ×3 (07:57→22:00)
[2019-07-29] MEDS ORDERED: LABETALOL HCL 100 MG TABLET (FP) PO ONE (08:30)
[2019-07-29] MEDS ORDERED: LABETALOL HCL INJECTION 1,000 MG in SODIUM CHLORIDE 800 ML IV SCH (09:00)
[2019-07-29] MEDS: POTASSIUM CHLORIDE TABS 20 MEQ TABLET.ER (FP) PO SCH ×2 (09:41→17:25)
[2019-07-29] MEDS: ASPIRIN 81 MG CHEWABLE TABLETS PO SCH (09:42)
[2019-07-29] MEDS: MUPIROCIN 2% TOPICAL OINTMENT FOR DECOLONIZATION NS SCH ×2 (09:43→21:16)
--- NOTE | 2019-07-29 10:02 | CON.CARD ---
Consult Consult Specialty:: Cardiology Referred by:: Dr. Boswell Reason for Consultation:: Hypertensive urgency - History of Present Illness Chief Complaint: Blurry vision History of Present Illness: 54 M has not seen a doctor in 40 years. Has chronic HTN, does not take meds. Came to ER with blurry vision, had seen Optho as outpatient who told him he had "bleeding behind the eyes" In ER c/o mild headache, BP > 200/100. Went to ICU, has required multiple pushes of IV Labetalol. Now denies CP, SOB, headache. + chronic CACERES. ECG: NSR, LVH, diffuse NSST changes TnI flat and equivocal range, no sig rise. 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: Alzheimer's, CVA, Dementia, Migraine, Multiple Sclerosis, Peripheral Neuropathy, Parkinson's, Seizure, Syncope, TIA, Vertigo, Other Cardio/Vascular: Yes: HTN Pulmonary: No: Asthma, Bronchitis, Cancer, COPD, O2 Dependent, Pneumonia, Previously Intubated, Pulmonary Embolus, Pulmonary Fibrosis, Sleep Apnea, Other Gastrointestinal: No: Ascites, Cancer, Constipation, Crohn's Disease, Diverticulitis, Diverticulosis, Esophageal Varices, Gastritis, GERD, GI Bleed, Hemorrhoids, Hiatal Hernia, Inflamatory Bowel Disease, Irritable Bowel Disease, Pancreatitis, Peptic Ulcer Disease, Ulcerative Colitis, Other Hepatobiliary: No: Cirrhosis, Cholelithiasis, Cholecystitis, Choledocholithiasis , Hepatitis A, Hepatitis B, Hepatitis C, Other Renal/: No: Renal Failure, Renal Inusuff, BPH, Cancer, Hematuria, Hemodialysis , Neurogenic Bladder, Renal Calculi, UTI, Other Heme/Onc: No: Anemia, B12 Deficiency, Bleeding Disorder, Cancer, Current Chemotherapy, Current Radiation Therapy, Hemochromatosis, Hypercoaguable State, Myeloproliferative Synd, Sickle Cell Disease, Sickle Cell Trait, Thrombocytopenia, Other Psych: No: Addictions, Anxiety, Bipolar, Depression, Panic, Psychosis, Schizophrenia, Other Musculoskeletal: No: Bursitis, Chronic low back pain, Hemiparesis, Hemiplegia, Osteoarthritis, Paraplegia, Other Rheumatology: No: Fibromyalgia, Gout, Lupus, Rheumatoid Arthritis, Sarcoidosis, Vasculitis, Other ENT: No: Allergic Rhinitis, Sinusitis, Other Endocrine: No: Dwayne's Disease, [place]'s Disease, Diabetes Insipidus, Diabetes Mellitus, Hyperparathyroidism, Hyperthyroidism, Hypothyroidism, Osteopenia, SIADH, Other Dermatology: No: Basal Cell, Cellulitis, Eczema, Melanoma, Psoriasis, Squamous Cell, Other - Past Surgical History Past Surgical History: No: None, AAA Repair, AICD, Amputation, Appendectomy, Arthrosocopy, AV Fistula/Graft, Bariatric Surgery, Breast Biopsy, Bypass, CABG, Carotid Endarterectomy, Cataract Removal, Cholecystectomy, Colectomy, Colonoscopy, Colostomy, Craniotomy, , Cystectomy, Hernia Repair, Hysterectomy, Ileal Conduit, Ileosotomy, Joint Replacement, Kidney Transplant, Laminectomy, Liver Transplant, Mastectomy, Nephrectomy, Oopherectomy, Orchiectomy, Permanent Pacemaker, Prostatectomy, Splenectomy, Stent, Thoracotomy , TURP, Tonsillectomy, Tubal Ligation, Upper Endoscopy, Valve Replacement, Vasectomy, Vein Stripping/Ligation - Alcohol/Substance Use Hx Alcohol Use: No - Smoking History Smoking history: Former smoker Have you smoked in the past 12 months: No - Social History 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 [employer] History of Recent Travel: No Home Medications - Allergies Allergies/Adverse Reactions: Allergies Allergy/AdvReac Type Severity Reaction Status Date / Time No Known Allergies Allergy Verified 07/28/19 11:49 - Home Medications Home Medications: Ambulatory Orders NK [No Known Home Medication] 07/28/19 Family Medical History Family History: Unremarkable (father had heart disease, does not know details) Review of Systems - Review of Systems Constitutional: reports: No Symptoms Eyes: reports: Blurred Vision HENT: reports: No Symptoms Neck: reports: No Symptoms Cardiovascular: reports: Shortness of Breath (chronic) Respiratory: reports: No Symptoms Gastrointestinal: reports: No Symptoms Genitourinary: reports: No Symptoms Breasts: reports: No Symptoms Reported Musculoskeletal: reports: No Symptoms Integumentary: reports: No Symptoms Neurological: reports: Headache Endocrine: reports: No Symptoms Hematology/Lymphatic: reports: No Symptoms Psychiatric: reports: No Symptoms - Risk Factors Known Risk Factors: Yes: Hypertension Vital Signs: Vital Signs Temperature 98 F 07/29/19 09:36 Pulse Rate 74 07/29/19 09:36 Respiratory Rate 16 07/29/19 09:36 Blood Pressure 211/122 H 07/29/19 09:36 O2 Sat by Pulse Oximetry (%) 98 07/29/19 07:59 Constitutional: Yes: No Distress, Calm Eyes: Yes: Conjunctiva Clear, EOM Intact HENT: Yes: Atraumatic, Normocephalic Neck: Yes: Trachea Midline Respiratory: Yes: CTA Bilaterally Gastrointestinal: Yes: Soft (NT, no bruits) Cardiovascular: Yes: Regular Rate and Rhythm JVD: No Carotid Bruit: No Heart Sounds: Yes: S4 Murmur: No: Systolic Murmur, Diastolic Murmur, Grade 1, Grade 2, Grade 3, Grade 4, Grade 5, Grade 6 Extremities: No: WNL, Amputation, Calf Tenderness, Cold, Cool, Cyanosis, Deformity, Delayed Capillary Refill, Erythema, External Rotation, Internal Rotation, Pallor, Shortened, Other Peripheral Pulses WNL: Yes (2+ throughout and = ) Neurological: Yes: Alert, Oriented - Other Data Labs, Other Data: CBC, BMP 07/29/19 05:25 07/29/19 05:25 INR, PTT INR 1.03 (0.83-1.09) 07/29/19 05:25 Troponin, BNP 07/28/19 07/28/19 07/28/19 12:15 16:10 21:00 Troponin I 0.11 H 0.12 H 0.09 H B-Natriuretic Peptide 9543.7 H 07/29/19 07/29/19 00:45 05:25 Troponin I 0.09 H 0.10 H B-Natriuretic Peptide Troponin, BNP 07/28/19 07/28/19 07/28/19 12:15 16:10 21:00 Troponin I 0.11 H 0.12 H 0.09 H B-Natriuretic Peptide 9543.7 H 07/29/19 07/29/19 00:45 05:25 Troponin I 0.09 H 0.10 H B-Natriuretic Peptide Echo: Report Reviewed Imaging - Results Chest X-ray: Image Reviewed EKG: Image Reviewed Assessment/Plan IMP: Hypertensive urgency Chronic hypertensive heart disease Likely CKD secondary to chronic HTN Abnl ECG- most likely due to LVH/chronic HTN heart dz Equivocal TnI - likely demand ischemia (mild) in setting of uncontrolled HTN REC: 1. ICU monitoring 2. D/W ICU team: BP currnently 220/130. Will start Labetalol drip and titrate carefully to target SBP 190-200/ 90-100. Needs steady and gradual reduction in MAP over next 12-24 hours. 3. Renal consult suggested 4. Optho consult suggested. 5. When BP stable and controlled, recommend stress MPI for further CV risk stratification.
--- NOTE | 2019-07-29 11:48 | PN ---
Teaching Attending Note Name of Resident: Lisa Goodmandominickpuneet ATTENDING PHYSICIAN STATEMENT I saw and evaluated the patient. I reviewed the resident's note and discussed the case with the resident. I agree with the resident's findings and plan as documented. SUBJECTIVE: Patient seen and examined in the ICU. Awake and alert. Denies DOWNING, BOV, dizziness, or weakness. BP improved to 170/100 after oral medications were given this AM. Intake & Output 07/26/19 07/27/19 07/28/19 07/29/19 23:59 23:59 23:59 23:59 Intake Total 240 330 Output Total 100 600 Balance 140 -270 Weight 162 lb Last Vital Signs Temp Pulse Resp BP Pulse Ox 98 F 80 16 163/103 H 98 07/29/19 10:00 07/29/19 10:06 07/29/19 10:00 07/29/19 10:06 07/29/19 07:59 GENERAL: Awake, alert, and fully oriented, in no acute distress. HEAD: Normal with no signs of trauma. EYES: Pupils equal, round and reactive to light, extraocular movements intact, sclera anicteric, conjunctiva clear. No lid lag EARS, NOSE, THROAT: Ears normal, nares patent, oropharynx clear without exudates. Moist mucous membranes NECK: Normal range of motion, supple without lymphadenopathy, JVD, or masses LUNGS: Breath sounds equal, clear to auscultation bilaterally. No wheezes, and no crackles. No accessory muscle use HEART: Regular rate and rhythm, normal S1 and S2 without murmur, rub or gallop ABDOMEN: Soft, nontender, not distended, normoactive bowel sounds, no guarding, no rebound, no masses MUSCULOSKELETAL: Normal range of motion at all joints. No bony deformities or tenderness. No CVA tenderness UPPER EXTREMITIES: 2+ pulses, warm, well-perfused. No cyanosis. No clubbing. Cap refill <2 seconds. No peripheral edema LOWER EXTREMITIES: 2+ pulses, warm, well-perfused. No calf tenderness. No peripheral edema NEUROLOGICAL: Non-focal, Cranial nerves II-XII intact. PSYCHIATRIC: Appropriate mood and affect SKIN: Warm, dry Laboratory Results - last 24 hr 07/28/19 07/28/19 07/28/19 12:15 12:15 12:15 WBC 12.9 H RBC 4.77 Hgb 15.2 Hct 42.9 MCV 90.0 MCH 32.0 MCHC 35.5 RDW 12.6 Plt Count 265 MPV 8.9 Absolute Neuts (auto) 10.0 H Neutrophils % 77.0 Lymphocytes % 13.7 Monocytes % 6.5 Eosinophils % 1.8 Basophils % 1.0 Nucleated RBC % 0 PT with INR 12.20 INR 1.03 Sodium 131 L Potassium 2.8 L* Chloride 90 L Carbon Dioxide 32 Anion Gap 9 BUN 27.2 H Creatinine 2.1 H Est GFR (CKD-EPI)AfAm 40.15 Est GFR (CKD-EPI)NonAf 34.64 Random Glucose 174 H Hemoglobin A1c % Calcium 9.3 Phosphorus Magnesium Total Bilirubin 0.6 AST 16 ALT 20 Alkaline Phosphatase 137 H Creatine Kinase 76 Troponin I 0.11 H B-Natriuretic Peptide 9543.7 H Total Protein 7.5 Albumin 3.6 Triglycerides Cholesterol Total LDL Cholesterol HDL Cholesterol TSH Urine Color Urine Appearance Urine pH Ur Specific [place] Urine Protein Urine Glucose (UA) Urine Ketones Urine Blood Urine Nitrite Urine Bilirubin Urine Urobilinogen Ur Leukocyte Esterase Urine WBC (Auto) Urine RBC (Auto) Urine Casts (Auto) U Epithel Cells (Auto) Urine Bacteria (Auto) Opiates Screen Methadone Screen Barbiturate Screen Phencyclidine Screen Ur Amphetamines Screen MDMA (Ecstasy) Screen Benzodiazepines Screen Cocaine Screen U Marijuana (THC) Screen 07/28/19 07/28/19 07/28/19 12:15 16:10 16:10 WBC RBC Hgb Hct MCV MCH MCHC RDW Plt Count MPV Absolute Neuts (auto) Neutrophils % Lymphocytes % Monocytes % Eosinophils % Basophils % Nucleated RBC % PT with INR INR Sodium Potassium Chloride Carbon Dioxide Anion Gap BUN Creatinine Est GFR (CKD-EPI)AfAm Est GFR (CKD-EPI)NonAf Random Glucose Hemoglobin A1c % 6.3 Calcium Phosphorus Magnesium 2.4 Total Bilirubin AST ALT Alkaline Phosphatase Creatine Kinase Troponin I 0.12 H B-Natriuretic Peptide Total Protein Albumin Triglycerides 146 Cholesterol 265 H Total LDL Cholesterol 189 H HDL Cholesterol 49 TSH 1.86 Urine Color Urine Appearance Urine pH Ur Specific [place] Urine Protein Urine Glucose (UA) Urine Ketones Urine Blood Urine Nitrite Urine Bilirubin Urine Urobilinogen Ur Leukocyte Esterase Urine WBC (Auto) Urine RBC (Auto) Urine Casts (Auto) U Epithel Cells (Auto) Urine Bacteria (Auto) Opiates Screen Methadone Screen Barbiturate Screen Phencyclidine Screen Ur Amphetamines Screen MDMA (Ecstasy) Screen Benzodiazepines Screen Cocaine Screen U Marijuana (THC) Screen 07/28/19 07/28/19 07/28/19 21:00 22:30 22:30 WBC RBC Hgb Hct MCV MCH MCHC RDW Plt Count MPV Absolute Neuts (auto) Neutrophils % Lymphocytes % Monocytes % Eosinophils % Basophils % Nucleated RBC % PT with INR INR Sodium 133 L Potassium 3.2 L Chloride 93 L Carbon Dioxide 31 Anion Gap 9 BUN 31.6 H Creatinine 2.4 H Est GFR (CKD-EPI)AfAm 34.16 Est GFR (CKD-EPI)NonAf 29.48 Random Glucose 199 H Hemoglobin A1c % Calcium 8.9 Phosphorus Magnesium Total Bilirubin AST ALT Alkaline Phosphatase Creatine Kinase 60 Troponin I 0.09 H B-Natriuretic Peptide Total Protein Albumin Triglycerides Cholesterol Total LDL Cholesterol HDL Cholesterol TSH Urine Color Yellow Urine Appearance Clear Urine pH 5.5 Ur Specific [place] 1.019 Urine Protein 3+ H Urine Glucose (UA) Trace Urine Ketones Negative Urine Blood Negative Urine Nitrite Negative Urine Bilirubin Negative Urine Urobilinogen 0.2 Ur Leukocyte Esterase Negative Urine WBC (Auto) 1 Urine RBC (Auto) 1 Urine Casts (Auto) 6 U Epithel Cells (Auto) 1.3 Urine Bacteria (Auto) 1.2 Opiates Screen Negative Methadone Screen Negative Barbiturate Screen Negative Phencyclidine Screen Negative Ur Amphetamines Screen Negative MDMA (Ecstasy) Screen Negative Benzodiazepines Screen Negative Cocaine Screen Negative U Marijuana (THC) Screen Negative 07/29/19 07/29/19 07/29/19 00:45 05:25 05:25 WBC 10.1 H RBC 4.02 Hgb 13.2 Hct 36.6 MCV 91.0 MCH 32.9 MCHC 36.1 H RDW 12.8 Plt Count 254 MPV 9.0 Absolute Neuts (auto) 6.0 Neutrophils % 59.4 D Lymphocytes % 26.2 D Monocytes % 9.6 Eosinophils % 4.0 D Basophils % 0.8 Nucleated RBC % 0 PT with INR 12.20 INR 1.03 Sodium Potassium Chloride Carbon Dioxide Anion Gap BUN Creatinine Est GFR (CKD-EPI)AfAm Est GFR (CKD-EPI)NonAf Random Glucose Hemoglobin A1c % Calcium Phosphorus Magnesium Total Bilirubin AST ALT Alkaline Phosphatase Creatine Kinase Troponin I 0.09 H B-Natriuretic Peptide Total Protein Albumin Triglycerides Cholesterol Total LDL Cholesterol HDL Cholesterol TSH Urine Color Urine Appearance Urine pH Ur Specific [place] Urine Protein Urine Glucose (UA) Urine Ketones Urine Blood Urine Nitrite Urine Bilirubin Urine Urobilinogen Ur Leukocyte Esterase Urine WBC (Auto) Urine RBC (Auto) Urine Casts (Auto) U Epithel Cells (Auto) Urine Bacteria (Auto) Opiates Screen Methadone Screen Barbiturate Screen Phencyclidine Screen Ur Amphetamines Screen MDMA (Ecstasy) Screen Benzodiazepines Screen Cocaine Screen U Marijuana (THC) Screen 07/29/19 07/29/19 07/29/19 05:25 05:25 05:25 WBC RBC Hgb Hct MCV MCH MCHC RDW Plt Count MPV Absolute Neuts (auto) Neutrophils % Lymphocytes % Monocytes % Eosinophils % Basophils % Nucleated RBC % PT with INR INR Sodium 136 136 Potassium 3.1 L 3.1 L Chloride 96 L 97 L Carbon Dioxide 32 32 Anion Gap 9 7 L BUN 31.9 H 35.8 H Creatinine 2.5 H 2.4 H Est GFR (CKD-EPI)AfAm 32.52 34.16 Est GFR (CKD-EPI)NonAf 28.06 29.48 Random Glucose 112 H 115 H Hemoglobin A1c % Calcium 8.9 8.9 Phosphorus 4.2 Magnesium 2.3 Total Bilirubin 0.4 AST 13 L ALT 16 Alkaline Phosphatase 113 Creatine Kinase Troponin I 0.10 H B-Natriuretic Peptide Total Protein 6.5 Albumin 3.0 L Triglycerides Cholesterol Total LDL Cholesterol HDL Cholesterol TSH 1.72 D Urine Color Urine Appearance Urine pH Ur Specific [place] Urine Protein Urine Glucose (UA) Urine Ketones Urine Blood Urine Nitrite Urine Bilirubin Urine Urobilinogen Ur Leukocyte Esterase Urine WBC (Auto) Urine RBC (Auto) Urine Casts (Auto) U Epithel Cells (Auto) Urine Bacteria (Auto) Opiates Screen Methadone Screen Barbiturate Screen Phencyclidine Screen Ur Amphetamines Screen MDMA (Ecstasy) Screen Benzodiazepines Screen Cocaine Screen U Marijuana (THC) Screen ASSESSMENT/PLAN: Hypertensive [facility] Follow up Non-compliance HTN Titrate PO Anti-hypertensives Secondary workup per primary team O2 as needed OOB to chair Follow Neuro exam If BP stabilizes: floor. If needed, start Cardene drip VTE prophylaxis Dr Rodriguez
--- NOTE | 2019-07-29 12:20 | EKG ---
Test Reason : Blood Pressure : / mmHG Vent. Rate : 077 BPM Atrial Rate : 077 BPM P-R Int : 180 ms QRS Dur : 100 ms QT Int : 436 ms P-R-T Axes : 030 -37 168 degrees QTc Int : 493 ms NORMAL SINUS RHYTHM POSSIBLE LEFT ATRIAL ENLARGEMENT LEFT AXIS DEVIATION LEFT VENTRICULAR HYPERTROPHY WITH REPOLARIZATION ABNORMALITY CANNOT RULE OUT SEPTAL INFARCT (CITED ON OR BEFORE 28-JUL-2019) ABNORMAL ECG WHEN COMPARED WITH ECG OF 29-JUL-2019 00:18, NO SIGNIFICANT CHANGE WAS FOUND Confirmed by SHUKRI MIDDLETON MD ([id number]) on 07/29/2019 12:20:04 PM Referred By: MALA PADILLA DR Confirmed By:SHUKRI MIDDLETON MD
--- NOTE | 2019-07-29 12:24 | EKG ---
Test Reason : Blood Pressure : / mmHG Vent. Rate : 076 BPM Atrial Rate : 076 BPM P-R Int : 184 ms QRS Dur : 112 ms QT Int : 424 ms P-R-T Axes : 025 -35 151 degrees QTc Int : 477 ms NORMAL SINUS RHYTHM POSSIBLE LEFT ATRIAL ENLARGEMENT LEFT AXIS DEVIATION LEFT VENTRICULAR HYPERTROPHY WITH REPOLARIZATION ABNORMALITY CANNOT RULE OUT SEPTAL INFARCT (CITED ON OR BEFORE 28-JUL-2019) ABNORMAL ECG Confirmed by SHUKRI MIDDLETON MD ([id number]) on 07/29/2019 12:24:06 PM Referred By: Confirmed By:SHUKRI MIDDLETON MD
--- NOTE | 2019-07-29 13:25 | PN ---
Physical Exam: SUBJECTIVE: Patient seen and examined. Patient BP remains uncontrolled 160-200s / 70-110s. Labetalol drip initiated but pressures dropped >40s systolic within minutes of initiating drip, so holding off for now. Continuing IV push & PO BP medications. Will restart drip if needed. OBJECTIVE: Vital Signs Period Temp Pulse Resp BP Sys/Hameed Pulse Ox Last 24 Hr 98 F-98.5 F 64-81 14-18 152-218/83-133 96-98 GENERAL: The patient is awake, alert, and fully oriented, in no acute distress. HEENT: NCAT. PERRLA. MMM. No JVD LUNGS: Breath sounds equal, clear to auscultation bilaterally HEART: Regular rate and rhythm, S1, S2 without murmur, rub or gallop. ABDOMEN: Soft, nontender, nondistended, normoactive bowel sounds EXTREMITIES: 2+ pulses, warm, well-perfused, no edema. NEUROLOGICAL: Cranial nerves II through XII grossly intact. PSYCH: Normal mood, normal affect. SKIN: Warm, dry, normal turgor, no rashes or lesions noted Laboratory Results - last 24 hr Laboratory Last Values WBC 10.1 K/mm3 (4.0-10.0) H 07/29/19 05:25 RBC 4.02 M/mm3 (4.00-5.60) 07/29/19 05:25 Hgb 13.2 GM/dL (11.7-16.9) 07/29/19 05:25 Hct 36.6 % (35.4-49) 07/29/19 05:25 MCV 91.0 fl (80-96) 07/29/19 05:25 MCH 32.9 pg (25.7-33.7) 07/29/19 05:25 MCHC 36.1 g/dl (32.0-35.9) H 07/29/19 05:25 RDW 12.8 % (11.9-15.9) 07/29/19 05:25 Plt Count 254 K/MM3 (134-434) 07/29/19 05:25 MPV 9.0 fl (7.5-11.1) 07/29/19 05:25 Absolute Neuts (auto) 6.0 K/mm3 (1.5-8.0) 07/29/19 05:25 Neutrophils % 59.4 % (42.8-82.8) D 07/29/19 05:25 Lymphocytes % 26.2 % (8-40) D 07/29/19 05:25 Monocytes % 9.6 % (3.8-10.2) 07/29/19 05:25 Eosinophils % 4.0 % (0-4.5) D 07/29/19 05:25 Basophils % 0.8 % (0-2.0) 07/29/19 05:25 Nucleated RBC % 0 % (0-0) 07/29/19 05:25 PT with INR 12.20 SEC (9.7-13.0) 07/29/19 05:25 INR 1.03 (0.83-1.09) 07/29/19 05:25 Sodium 136 mmol/L (136-145) 07/29/19 05:25 Potassium 3.1 mmol/L (3.5-5.1) L 07/29/19 05:25 Chloride 96 mmol/L (98-107) L 07/29/19 05:25 Carbon Dioxide 32 mmol/L (21-32) 07/29/19 05:25 Anion Gap 9 MMOL/L (8-16) 07/29/19 05:25 BUN 31.9 mg/dL (7-18) H 07/29/19 05:25 Creatinine 2.5 mg/dL (0.55-1.3) H 07/29/19 05:25 Est GFR (CKD-EPI)AfAm 32.52 07/29/19 05:25 Est GFR (CKD-EPI)NonAf 28.06 07/29/19 05:25 Random Glucose 112 mg/dL (74-106) H 07/29/19 05:25 Hemoglobin A1c % 6.3 % (4.2-6.3) 07/28/19 12:15 Calcium 8.9 mg/dL (8.5-10.1) 07/29/19 05:25 Phosphorus 4.2 mg/dL (2.5-4.9) 07/29/19 05:25 Magnesium 2.3 mg/dL (1.8-2.4) 07/29/19 05:25 Total Bilirubin 0.4 mg/dL (0.2-1) 07/29/19 05:25 AST 13 U/L (15-37) L 07/29/19 05:25 ALT 16 U/L (13-61) 07/29/19 05:25 Alkaline Phosphatase 113 U/L (45-117) 07/29/19 05:25 Creatine Kinase 60 U/L (26-308) 07/28/19 21:00 Troponin I 0.10 ng/ml (0.00-0.05) H 07/29/19 05:25 B-Natriuretic Peptide 9543.7 pg/ml (5-125) H 07/28/19 12:15 Total Protein 6.5 g/dl (6.4-8.2) 07/29/19 05:25 Albumin 3.0 g/dl (3.4-5.0) L 07/29/19 05:25 Triglycerides 146 mg/dL (0-150) 07/28/19 16:10 Cholesterol 265 mg/dL (50-200) H 07/28/19 16:10 Total LDL Cholesterol 189 mg/dL (5-100) H 07/28/19 16:10 HDL Cholesterol 49 mg/dL (40-60) 07/28/19 16:10 TSH 1.72 uIU/ml (0.358-3.74) D 07/29/19 05:25 Urine Color Yellow 07/28/19 22:30 Urine Appearance Clear 07/28/19 22:30 Urine pH 5.5 (5.0-8.0) 07/28/19 22:30 Ur Specific [place] 1.019 (1.010-1.035) 07/28/19 22:30 Urine Protein 3+ (NEGATIVE) H 07/28/19 22:30 Urine Glucose (UA) Trace (NEGATIVE) 07/28/19 22:30 Urine Ketones Negative (NEGATIVE) 07/28/19 22:30 Urine Blood Negative (NEGATIVE) 07/28/19 22:30 Urine Nitrite Negative (NEGATIVE) 07/28/19 22:30 Urine Bilirubin Negative (NEGATIVE) 07/28/19 22:30 Urine Urobilinogen 0.2 mg/dL (0.2-1.0) 07/28/19 22:30 Ur Leukocyte Esterase Negative (NEGATIVE) 07/28/19 22:30 Urine WBC (Auto) 1 /hpf (0-5) 07/28/19 22:30 Urine RBC (Auto) 1 /hpf (0-4) 07/28/19 22:30 Urine Casts (Auto) 6 /lpf (0-8) 07/28/19 22:30 U Epithel Cells (Auto) 1.3 /HPF (0-5/HPF) 07/28/19 22:30 Urine Bacteria (Auto) 1.2 /hpf (NEGATIVE) 07/28/19 22:30 Opiates Screen Negative ng/ml (HGNKEQ=022) 07/28/19 22:30 Methadone Screen Negative ng/ml (JPDZTJ=422) 07/28/19 22:30 Barbiturate Screen Negative ng/ml (SHHDAW=778) 07/28/19 22:30 Phencyclidine Screen Negative ng/ml (CUTOFF=25) 07/28/19 22:30 Ur Amphetamines Screen Negative ng/ml (XRUDMX=643) 07/28/19 22:30 MDMA (Ecstasy) Screen Negative ng/ml (BUKSWM=099) 07/28/19 22:30 Benzodiazepines Screen Negative ng/ml (CHSMLV=716) 07/28/19 22:30 Cocaine Screen Negative ng/ml (SIBHTD=157) 07/28/19 22:30 U Marijuana (THC) Screen Negative ng/ml (CUTOFF=50) 07/28/19 22:30 Active Medications Current Medications Aspirin (Asa -) 81 mg PO DAILY ADALID Last Admin: 07/29/19 09:42 Dose: 81 mg Atorvastatin Calcium (Lipitor -) 40 mg PO HS ADALID Last Admin: 07/28/19 22:22 Dose: 40 mg Chlorhexidine Gluconate (Hibiclens For Decolonization -) 1 applic TP HS ADALID Last Admin: 07/28/19 22:22 Dose: 1 applic Heparin Sodium (Porcine) (Heparin -) 5,000 unit SQ TID ADALID Last Admin: 07/29/19 06:23 Dose: 5,000 unit Labetalol HCl 1,000 mg/ Sodium (Chloride) 1,000 mls @ 120 mls/hr IV TITR ADALID; Protocol Last Titration: 07/29/19 10:06 Dose: 0 mg/min, 0 mls/hr Labetalol HCl (Normodyne Injection -) 10 mg IVPUSH Q4H PRN PRN Reason: HYPERTENSION Last Admin: 07/29/19 11:45 Dose: 10 mg Mupirocin (Bactroban Ointment (For Decolonization) -) 1 applic NS BID [facility] Stop: 08/02/19 21:59 Last Admin: 07/29/19 09:43 Dose: 1 applic Nifedipine (Procardia Xl -) 30 mg PO DAILY [facility] Last Admin: 07/29/19 09:42 Dose: 30 mg Potassium Chloride (K-Dur -) 40 meq PO TID [facility] Stop: 07/29/19 14:01 Last Admin: 07/29/19 09:41 Dose: 40 meq ASSESSMENT/PLAN: 54 y.o. 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 (Target BP on labetalol drip SBP 190-200/ 90-100) -giving labetalol 10mg IV q4h PRN for SBP >180 -BP now 170s/100s, MAPs 120s. Needs steady and gradual reduction in MAP over next 12-24 hours. -Cardio following: recs stress MPI for further CV risk stratification. -pt may need renal u/s to r/o renal a. stenosis -continue statin daily #Pulm -on admission patient had dyspnea, now resolved -no acute issues -saturating well on RA -continue to monitor #Renal -Cr today 2.4, unknown baseline -K+ 3 this morning, given PO replacement f/u BMP -Dr. Becerra renal consulted f/u recs #FENLTD -no standing fluids -hypokalemia, repleted-- f/u repeat bmp -NA controlled diet -peripheral IV lines #PPX -Heparin SQ #Dispo -Continue ICU level of care Visit type - Emergency Visit Emergency Visit: Yes ED Registration Date: 07/28/19 Care time: The patient presented to the Emergency Department on the above date and was hospitalized for further evaluation of their emergent condition. - New Patient This patient is new to me today: Yes Date on this admission: 07/29/19 - Critical Care Critical Care patient: Yes Total Critical Care Time (in minutes): 45 Critical Care Statement: The care of this patient involved high complexity decision making to prevent further life threatening deterioration of the patient 's condition and/or to evaluate & treat vital organ system(s) failure or risk of failure. ATTENDING PHYSICIAN STATEMENT I saw and evaluated the patient. I reviewed the resident's note and discussed the case with the resident. I agree with the resident's findings and plan as documented. SUBJECTIVE: OBJECTIVE: ASSESSMENT AND PLAN:
[2019-07-29] MEDS ORDERED: NICARDIPINE 25 MG in DEXTROSE 5%-WATER - 240 ML IVPB SCH (14:15)
[2019-07-29] MEDS ORDERED: LABETALOL HCL 200 MG TABLET (FP) PO SCH (14:45)
--- NOTE | 2019-07-29 15:42 | EKG ---
Test Reason : Blood Pressure : / mmHG Vent. Rate : 070 BPM Atrial Rate : 070 BPM P-R Int : 178 ms QRS Dur : 104 ms QT Int : 468 ms P-R-T Axes : 022 078 199 degrees QTc Int : 505 ms NORMAL SINUS RHYTHM POSSIBLE LEFT ATRIAL ENLARGEMENT LEFT VENTRICULAR HYPERTROPHY WITH REPOLARIZATION ABNORMALITY CANNOT RULE OUT SEPTAL INFARCT (CITED ON OR BEFORE 28-JUL-2019) PROLONGED QT ABNORMAL ECG Confirmed by SHUKRI MIDDLETON MD ([id number]) on 07/29/2019 3:41:44 PM Referred By: Confirmed By:SHUKRI MIDDLETON MD
--- NOTE | 2019-07-29 15:45 | EKG ---
Test Reason : Blood Pressure : / mmHG Vent. Rate : 075 BPM Atrial Rate : 075 BPM P-R Int : 184 ms QRS Dur : 108 ms QT Int : 450 ms P-R-T Axes : 029 -33 171 degrees QTc Int : 502 ms NORMAL SINUS RHYTHM POSSIBLE LEFT ATRIAL ENLARGEMENT LEFT AXIS DEVIATION LEFT VENTRICULAR HYPERTROPHY WITH REPOLARIZATION ABNORMALITY ANTERIOR INFARCT , AGE UNDETERMINED PROLONGED QT ABNORMAL ECG NO PREVIOUS ECGS AVAILABLE Confirmed by SHUKRI MIDDLETON MD ([id number]) on 07/29/2019 3:45:34 PM Referred By: Confirmed By:SHUKRI MIDDLETON MD
[2019-07-29 16:03] LABS: BLOOD UREA NITROGEN 32.7 mg/dL (7-18); CALCIUM 8.8 mg/dL (8.5-10.1); CREATININE 2.5 mg/dL (0.55-1.3); POTASSIUM 3.4 mmol/L (3.5-5.1)
--- NOTE | 2019-07-29 16:14 | CONSULT ---
Consult Consult Specialty:: Nephrology Reason for Consultation:: HTN and CKD - History of Present Illness Chief Complaint: headache History of Present Illness: Pt is a 54 year old male with pmxh of HTN who presents to the ER with headache and generalized malaise. He was found to be hypertensive and in renal failure. He has long standing history of HTN. He says that he does not take meds and does not go to doctors. He does not remember if he ever had his blood checked or if he was hypokalemic in the past. He does not know if anyone in his family is hypertensive. He denies chest pain. he denies dsyuria or hematuria. He denies nsaid use. He denies hematuria or dysuria. 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 [employer] History of Recent Travel: No Home Medications - Allergies Allergies/Adverse Reactions: Allergies Allergy/AdvReac Type Severity Reaction Status Date / Time No Known Allergies Allergy Verified 07/28/19 11:49 - Home Medications Home Medications: Ambulatory Orders NK [No Known Home Medication] 07/28/19 Family Medical History Family History: Denies Review of Systems - Review of Systems Constitutional: reports: Malaise Eyes: reports: No Symptoms HENT: reports: No Symptoms Neck: reports: No Symptoms Cardiovascular: reports: No Symptoms Respiratory: reports: No Symptoms Gastrointestinal: reports: No Symptoms Genitourinary: reports: No Symptoms Musculoskeletal: reports: No Symptoms Integumentary: reports: No Symptoms Neurological: reports: Headache Endocrine: reports: No Symptoms Physical Exam Vital Signs: Vital Signs Temperature 98 F 07/29/19 13:50 Pulse Rate 78 07/29/19 15:00 Respiratory Rate 15 07/29/19 15:00 Blood Pressure 189/100 H 07/29/19 15:00 O2 Sat by Pulse Oximetry (%) 98 07/29/19 07:59 Constitutional: Yes: Calm Eyes: Yes: Conjunctiva Clear HENT: Yes: Atraumatic Neck: Yes: Supple Cardiovascular: Yes: S1, S2 Respiratory: Yes: CTA Bilaterally Gastrointestinal: Yes: Normal Bowel Sounds, Soft Renal/: Yes: WNL Musculoskeletal: Yes: WNL Extremities: Yes: WNL Edema: No Neurological: Yes: Oriented Psychiatric: Yes: Oriented Labs: CBC, BMP 07/29/19 05:25 07/29/19 15:00 Imaging - Results Chest X-ray: Report Reviewed Assessment/Plan Current Medications Generic Name Dose Route Start Last Admin Trade Name Freq PRN Reason Stop Dose Admin Aspirin 81 mg 07/29/19 10:00 07/29/19 09:42 Asa - PO 81 mg DAILY ADALID Administration Atorvastatin Calcium 40 mg 07/28/19 22:00 07/28/19 22:22 Lipitor - PO 40 mg HS ADALID Administration Chlorhexidine Gluconate 1 applic 07/28/19 22:00 07/28/19 22:22 Hibiclens For Decolonization - TP 1 applic HS ADALID Administration Heparin Sodium (Porcine) 5,000 unit 07/28/19 22:00 07/29/19 14:42 Heparin - SQ 5,000 unit TID ADALID Administration Nicardipine HCl 25 mg/ 250 mls @ 25 mls/hr 07/29/19 14:58 07/29/19 17:50 Dextrose IVPB 2.5 mg/hr TITR ADALID 25 mls/hr Titration Protocol 2.5 MG/HR Labetalol HCl 200 mg 07/29/19 22:00 Normodyne - PO TID ADALID Mupirocin 1 applic 07/28/19 22:00 07/29/19 09:43 Bactroban Ointment (For Decolonization) - NS 08/02/19 21:59 1 applic BID ADALID Administration Nifedipine 30 mg 07/29/19 22:00 Procardia Xl - PO BID ADALID Impression 1. HTN 2. ckd vs jamir 3. proteinuria 4. 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
[2019-07-29] MEDS: NICARDIPINE 25 MG in DEXTROSE 5%-WATER - 240 ML IVPB SCH (17:27)
--- NOTE | 2019-07-29 18:40 | PN ---
Physical Exam: SUBJECTIVE: Patient seen and examined Endorses mild DOWNING. Endorses intermittent mild chest pain, left-sided; lasting up to 20mins that isn't related to activity. OBJECTIVE: Vital Signs Period Temp Pulse Resp BP Sys/Hameed Pulse Ox Last 24 Hr 98 F-98.5 F 64-81 14-18 163-218/83-133 96-98 GENERAL: The patient is awake, alert, and fully oriented, in no acute distress. HEAD: NC/AT. [place] of head with well healed wound EYES: PERRL, EOMI, sclera anicteric, conjunctiva clear. No ptosis. No obvious retinal hemorrhage on nondilated bedside opthalmoscopic exam ENT: Ears normal, nares patent, oropharynx clear without exudates, moist mucous membranes. NECK: Trachea midline, full range of motion, supple. LUNGS: Breath sounds equal, clear to auscultation bilaterally, no wheezes, no crackles, no accessory muscle use. HEART: Regular rate and rhythm, S1, S2 without murmur, rub or gallop. ABDOMEN: Soft, nonTTP, nondistended, normoactive bowel sounds, no guarding, no rebound. EXTREMITIES: 2+ pulses, warm, well-perfused, no edema. NEUROLOGICAL: Cranial nerves II through XII grossly intact. Normal speech. PSYCH: Normal mood, normal affect. SKIN: Warm, dry, normal turgor, no rashes or lesions noted Laboratory Results - last 24 hr 07/28/19 07/28/19 07/28/19 12:15 16:10 21:00 WBC RBC Hgb Hct MCV MCH MCHC RDW Plt Count MPV Absolute Neuts (auto) Neutrophils % Lymphocytes % Monocytes % Eosinophils % Basophils % Nucleated RBC % PT with INR INR Sodium 133 L Potassium 3.2 L Chloride 93 L Carbon Dioxide 31 Anion Gap 9 BUN 31.6 H Creatinine 2.4 H Est GFR (CKD-EPI)AfAm 34.16 Est GFR (CKD-EPI)NonAf 29.48 Random Glucose 199 H Hemoglobin A1c % 6.3 Calcium 8.9 Phosphorus Magnesium 2.4 Total Bilirubin AST ALT Alkaline Phosphatase Creatine Kinase 60 Troponin I 0.09 H Total Protein Albumin Triglycerides 146 Cholesterol 265 H Total LDL Cholesterol 189 H HDL Cholesterol 49 TSH 1.86 Urine Color Urine Appearance Urine pH Ur Specific [place] Urine Protein Urine Glucose (UA) Urine Ketones Urine Blood Urine Nitrite Urine Bilirubin Urine Urobilinogen Ur Leukocyte Esterase Urine WBC (Auto) Urine RBC (Auto) Urine Casts (Auto) U Epithel Cells (Auto) Urine Bacteria (Auto) Opiates Screen Methadone Screen Barbiturate Screen Phencyclidine Screen Ur Amphetamines Screen MDMA (Ecstasy) Screen Benzodiazepines Screen Cocaine Screen U Marijuana (THC) Screen 07/28/19 07/28/19 07/29/19 22:30 22:30 00:45 WBC RBC Hgb Hct MCV MCH MCHC RDW Plt Count MPV Absolute Neuts (auto) Neutrophils % Lymphocytes % Monocytes % Eosinophils % Basophils % Nucleated RBC % PT with INR INR Sodium Potassium Chloride Carbon Dioxide Anion Gap BUN Creatinine Est GFR (CKD-EPI)AfAm Est GFR (CKD-EPI)NonAf Random Glucose Hemoglobin A1c % Calcium Phosphorus Magnesium Total Bilirubin AST ALT Alkaline Phosphatase Creatine Kinase Troponin I 0.09 H Total Protein Albumin Triglycerides Cholesterol Total LDL Cholesterol HDL Cholesterol TSH Urine Color Yellow Urine Appearance Clear Urine pH 5.5 Ur Specific [place] 1.019 Urine Protein 3+ H Urine Glucose (UA) Trace Urine Ketones Negative Urine Blood Negative Urine Nitrite Negative Urine Bilirubin Negative Urine Urobilinogen 0.2 Ur Leukocyte Esterase Negative Urine WBC (Auto) 1 Urine RBC (Auto) 1 Urine Casts (Auto) 6 U Epithel Cells (Auto) 1.3 Urine Bacteria (Auto) 1.2 Opiates Screen Negative Methadone Screen Negative Barbiturate Screen Negative Phencyclidine Screen Negative Ur Amphetamines Screen Negative MDMA (Ecstasy) Screen Negative Benzodiazepines Screen Negative Cocaine Screen Negative U Marijuana (THC) Screen Negative 07/29/19 07/29/19 07/29/19 05:25 05:25 05:25 WBC 10.1 H RBC 4.02 Hgb 13.2 Hct 36.6 MCV 91.0 MCH 32.9 MCHC 36.1 H RDW 12.8 Plt Count 254 MPV 9.0 Absolute Neuts (auto) 6.0 Neutrophils % 59.4 D Lymphocytes % 26.2 D Monocytes % 9.6 Eosinophils % 4.0 D Basophils % 0.8 Nucleated RBC % 0 PT with INR 12.20 INR 1.03 Sodium 136 Potassium 3.1 L Chloride 96 L Carbon Dioxide 32 Anion Gap 9 BUN 31.9 H Creatinine 2.5 H Est GFR (CKD-EPI)AfAm 32.52 Est GFR (CKD-EPI)NonAf 28.06 Random Glucose 112 H Hemoglobin A1c % Calcium 8.9 Phosphorus 4.2 Magnesium 2.3 Total Bilirubin 0.4 AST 13 L ALT 16 Alkaline Phosphatase 113 Creatine Kinase Troponin I Total Protein 6.5 Albumin 3.0 L Triglycerides Cholesterol Total LDL Cholesterol HDL Cholesterol TSH 1.72 D Urine Color Urine Appearance Urine pH Ur Specific [place] Urine Protein Urine Glucose (UA) Urine Ketones Urine Blood Urine Nitrite Urine Bilirubin Urine Urobilinogen Ur Leukocyte Esterase Urine WBC (Auto) Urine RBC (Auto) Urine Casts (Auto) U Epithel Cells (Auto) Urine Bacteria (Auto) Opiates Screen Methadone Screen Barbiturate Screen Phencyclidine Screen Ur Amphetamines Screen MDMA (Ecstasy) Screen Benzodiazepines Screen Cocaine Screen U Marijuana (THC) Screen 07/29/19 07/29/19 07/29/19 05:25 05:25 15:00 WBC RBC Hgb Hct MCV MCH MCHC RDW Plt Count MPV Absolute Neuts (auto) Neutrophils % Lymphocytes % Monocytes % Eosinophils % Basophils % Nucleated RBC % PT with INR INR Sodium 136 136 Potassium 3.1 L 3.4 L Chloride 97 L 99 Carbon Dioxide 32 29 Anion Gap 7 L 8 BUN 35.8 H 32.7 H Creatinine 2.4 H 2.5 H Est GFR (CKD-EPI)AfAm 34.16 32.52 Est GFR (CKD-EPI)NonAf 29.48 28.06 Random Glucose 115 H 220 H Hemoglobin A1c % Calcium 8.9 8.8 Phosphorus Magnesium Total Bilirubin AST ALT Alkaline Phosphatase Creatine Kinase Troponin I 0.10 H Total Protein Albumin Triglycerides Cholesterol Total LDL Cholesterol HDL Cholesterol TSH Urine Color Urine Appearance Urine pH Ur Specific [place] Urine Protein Urine Glucose (UA) Urine Ketones Urine Blood Urine Nitrite Urine Bilirubin Urine Urobilinogen Ur Leukocyte Esterase Urine WBC (Auto) Urine RBC (Auto) Urine Casts (Auto) U Epithel Cells (Auto) Urine Bacteria (Auto) Opiates Screen Methadone Screen Barbiturate Screen Phencyclidine Screen Ur Amphetamines Screen MDMA (Ecstasy) Screen Benzodiazepines Screen Cocaine Screen U Marijuana (THC) Screen Active Medications Generic Name Dose Route Start Last Admin Trade Name Freq PRN Reason Stop Dose Admin Aspirin 81 mg 07/29/19 10:00 07/29/19 09:42 Asa - PO 81 mg DAILY ADALID Administration Atorvastatin Calcium 40 mg 07/28/19 22:00 07/28/19 22:22 Lipitor - PO 40 mg HS ADALID Administration Chlorhexidine Gluconate 1 applic 07/28/19 22:00 07/28/19 22:22 Hibiclens For Decolonization - TP 1 applic HS ADALID Administration Heparin Sodium (Porcine) 5,000 unit 07/28/19 22:00 07/29/19 14:42 Heparin - SQ 5,000 unit TID ADALID Administration Nicardipine HCl 25 mg/ 250 mls @ 25 mls/hr 07/29/19 14:58 07/29/19 17:50 Dextrose IVPB 2.5 mg/hr TITR ADALID 25 mls/hr Titration Protocol 2.5 MG/HR Labetalol HCl 200 mg 07/29/19 22:00 Normodyne - PO TID ADALID Mupirocin 1 applic 07/28/19 22:00 07/29/19 09:43 Bactroban Ointment (For Decolonization) - NS 08/02/19 21:59 1 applic BID ADALID Administration Nifedipine 30 mg 07/29/19 22:00 Procardia Xl - PO BID ADALID ASSESSMENT/PLAN: 54 y.o. M w/ PMHx. of HTN(non-compliance) presents for worsening blurry vision and headache. Pt. admitted for Hypertensive Emergency w/ SBP >200. Has troponinemia, possibly NSTEMI. # Hypertensive Emergency vs. - s/p Labetalol 20mg x 2 and Norvasc 5mg, ASA 324mg - Initial BP 214/147--> persistently SBP >200 > CTH: ventricular dilation, focal encephalomalacia of Right frontal lobe, focal chronic infarct of R thalamus, R centrum > Echo: Moderate concentric LVH, EF: 55-60%, mild TR > UDS: neg - HTN regimen: -- nicardipine gtt -- Nifedipine 30mg BID -- Labetalol 200mg TID # NSTEMI > Trop: 0.11, 0.12, 0.09, 0.09, 0.10 > BNP: 9,593 > EKG: evolving changes with ST elevations in V1-V2, now in V1-V4 > CXR: neg - monitor serial EKGs and if pt symptomatic - Consult Cardio(Dr. Sweeney): -- stress test w/ BP stable # MEY? on CKD > UA: 3+ protein, glucose trace > HbA1c 6.3 - Consult Nephro(Dr. Becerra) appreciated: --pending recs # HLD > Cholesterol: 265, LDL 189 - start Atorvastatin #FEN - Na controlled Diet #DVT Ppx. Hep SQ Visit type - Emergency Visit Emergency Visit: No - New Patient This patient is new to me today: No - Critical Care Critical Care patient: Yes Total Critical Care Time (in minutes): 35 Critical Care Statement: The care of this patient involved high complexity decision making to prevent further life threatening deterioration of the patient 's condition and/or to evaluate & treat vital organ system(s) failure or risk of failure. ATTENDING PHYSICIAN STATEMENT I saw and evaluated the patient. I reviewed the resident's note and discussed the case with the resident. I agree with the resident's findings and plan as documented. SUBJECTIVE: OBJECTIVE: ASSESSMENT AND PLAN:
--- NOTE | 2019-07-29 18:56 | PN ---
Teaching Attending Note Name of Resident: Rahul Herrera ATTENDING PHYSICIAN STATEMENT I saw and evaluated the patient. I reviewed the resident's note and discussed the case with the resident. I agree with the resident's findings and plan as documented. SUBJECTIVE: seen at 10 am . No fever or chills. did not see a doctor in > 20 yrs. does not take any meds he denies any change in his vision at this point. his eyes are at base line. 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 he denies DOWNING /weakness/numbness/tingling OBJECTIVE: NAD awake, alert, comfortable CV: RRR, 2/6 SM at apex . No carotid bruits. no delay between radial and femoral pulse. symmetric radial pulse. Abd: soft, NT, ND, NL BS. no renal artery bruits. Ext: No edema or erythema. fundoscopic eye exam: could not visualize the full fundi but visualized areas had nl vessels and no bleeding ASSESSMENT AND PLAN: 54 y/o man with no medical f/u who presented with DOWNING, sweating, and blurry vision and was found to have HTN emergency 1- HTN emergency. most likely due to untreated essential hypertension, but secondary causes need to be r/o . - Bp improved . labatalol gtt was not started in am - cont labetalol 200 TId and nifedipine 60 daiy. - if needed IV gtt can be used. - due to low K. Aldosterone , and renin were ordered. follow results - no delay between radial and femoral pulse. no renal artery bruits. - metanephrins can't be ordered here. 2- MEY Vs CKD. - monitor . avoid acei /ARbs for now - follow electrolytes 3- Elevated trop : EKGs reviewed. flat trend n trop . likely demand ischemia - stress test when stable. - cont BB - cont asa 4- Hyperlipidemia: LDL 189 - cont statin 5- DVT px : heparin sq
[2019-07-29] MEDS: TRIAMTERENE 50 MG CAPSULE PO SCH (20:00)
[2019-07-29] MEDS: LABETALOL HCL 200 MG TABLET (FP) PO SCH (21:16)
[2019-07-29] MEDS: ATORVASTATIN CA 40 MG TABLET (FP) PO SCH (21:16)
[2019-07-29] MEDS: CHLORHEXIDINE GLUCONATE 4% CLEANSER FOR DECOLONIZATION TP SCH (21:16)
[2019-07-30] MEDS: LABETALOL HCL 200 MG TABLET (FP) PO SCH ×3 (06:28→22:32)
[2019-07-30] MEDS: HEPARIN NA (PORCINE) 5,000 UNITS/ML 1ML VIAL SQ SCH ×3 (06:28→21:08)
[2019-07-30 07:07] LABS: BASO % 0.8 % (0-2.0); EOS % 3.7 % (0-4.5); HEMATOCRIT 36.5 % (35.4-49); HEMOGLOBIN 12.9 GM/dL (11.7-16.9); LYMPH % 16.4 % (8-40); MCH 32.6 pg (25.7-33.7); MCHC 35.4 g/dl (32.0-35.9); MONO % 6.2 % (3.8-10.2); NEUT % 72.9 % (42.8-82.8); PLATELET COUNT 249 K/MM3 (134-434); RBC 3.97 M/mm3 (4.00-5.60); RDW 12.8 % (11.9-15.9); WHITE BLOOD COUNT 12.7 K/mm3 (4.0-10.0)
--- NOTE | 2019-07-30 07:29 | PN ---
Progress Note (short form) - Note Progress Note: PULM/CCM
[2019-07-30 07:33] LABS: ALBUMIN 2.9 g/dl (3.4-5.0); BILIRUBIN,TOTAL 0.5 mg/dL (0.2-1); BLOOD UREA NITROGEN 35.5 mg/dL (7-18); CALCIUM 8.7 mg/dL (8.5-10.1); CREATININE 2.4 mg/dL (0.55-1.3); MAGNESIUM 2.3 mg/dL (1.8-2.4); POTASSIUM 3.3 mmol/L (3.5-5.1); TOT PROT 6.4 g/dl (6.4-8.2)
[2019-07-30] MEDS ORDERED: POTASSIUM CHLORIDE TABS 20 MEQ TABLET.ER (FP) PO ONE ×2 (08:32→21:00)
--- NOTE | 2019-07-30 10:10 | PN ---
Progress Note, Physician History of Present Illness: Episode of dizziness while getting out of bed States he "needs to leave, has things to do" Tele: NSR, no arrhythmia noted this AM - Current Medication List Current Medications: Active Medications Aspirin (Asa -) 81 mg PO DAILY [facility] Last Admin: 07/29/19 09:42 Dose: 81 mg Atorvastatin Calcium (Lipitor -) 40 mg PO HS [facility] Last Admin: 07/29/19 21:16 Dose: 40 mg Chlorhexidine Gluconate (Hibiclens For Decolonization -) 1 applic TP HS [facility] Last Admin: 07/29/19 21:16 Dose: 1 applic Heparin Sodium (Porcine) (Heparin -) 5,000 unit SQ TID [facility] Last Admin: 07/30/19 06:28 Dose: 5,000 unit Nicardipine HCl 25 mg/ (Dextrose) 250 mls @ 25 mls/hr IVPB TITR [facility]; Protocol Last Titration: 07/30/19 07:00 Dose: 0 mg/hr, 0 mls/hr Labetalol HCl (Normodyne -) 200 mg PO TID [facility] Last Admin: 07/30/19 06:28 Dose: 200 mg Mupirocin (Bactroban Ointment (For Decolonization) -) 1 applic NS BID [facility] Stop: 08/02/19 21:59 Last Admin: 07/29/19 21:16 Dose: 1 applic Nifedipine (Procardia Xl -) 60 mg PO DAILY [facility] Triamterene (Dyrenium -) 50 mg PO DAILY [facility] Last Admin: 07/29/19 20:00 Dose: 50 mg - Objective Vital Signs: Vital Signs Temperature 97.9 F 07/30/19 05:00 Pulse Rate 70 07/30/19 08:55 Respiratory Rate 15 07/30/19 08:55 Blood Pressure 136/65 07/30/19 08:55 O2 Sat by Pulse Oximetry (%) 98 07/29/19 21:03 Constitutional: Yes: No Distress Cardiovascular: Yes: Regular Rate and Rhythm Respiratory: Yes: CTA Bilaterally Edema: No Labs: CBC, BMP 07/30/19 06:03 07/30/19 06:03 INR, PTT INR 1.03 (0.83-1.09) 07/29/19 05:25 Assessment/Plan Hypertensive urgency Chronic hypertensive heart disease Likely CKD secondary to chronic HTN Abnl ECG- most likely due to LVH/chronic HTN heart dz Equivocal TnI - likely demand ischemia (mild) in setting of uncontrolled HTN REC: 1. Tele monitoring continued given recurernt dizziness this AM after introduction of antihypertensive regimen 2. BP improved now on PO Labatelol 200 TID and Nifedipine 60mg and Triamterene 50mg 3. As per Dr. Sweeney: agree with recommending stress MPI for further CV risk stratification.
[2019-07-30] MEDS: NIFEdipine E.R. 30 MG TABLET PO SCH (10:19)
[2019-07-30] MEDS ORDERED: PT OWN MED DRAWER 7, Y5N ONE (10:20)
[2019-07-30] MEDS: MUPIROCIN 2% TOPICAL OINTMENT FOR DECOLONIZATION NS SCH ×2 (10:22→21:08)
[2019-07-30] MEDS: TRIAMTERENE 50 MG CAPSULE PO SCH (10:22)
[2019-07-30] MEDS: ASPIRIN 81 MG CHEWABLE TABLETS PO SCH (10:23)
--- NOTE | 2019-07-30 11:41 | PN ---
Teaching Attending Note Name of Resident: Rahul Herrera ATTENDING PHYSICIAN STATEMENT I saw and evaluated the patient. I reviewed the resident's note and discussed the case with the resident. I agree with the resident's findings and plan as documented. SUBJECTIVE: no pain , no fever or chills. No DOWNING . No N/V . no change in vision today. he thinks we 're not doing anything fr him and he wants to leave home OBJECTIVE: NAD ,awake, alert, comfortable CV: RRR, 2/6 SM at apex. Abd: soft, NT, ND, NL BS. Ext: No edema or erythema. ASSESSMENT AND PLAN: 54 y/o man with no medical f/u who presented with DOWNING, sweating, and blurry vision and was found to have HTN emergency 1- HTN emergency. most likely due to untreated essential hypertension, but secondary causes need to be r/o . - cont labetalol , nifedipine and amiloride. - Ladosteron and renin levels are pending - concern for Td Sx or Con's syndrome - replete K - monitor bp closly. Per RN nicardipine gtt was not started 2- MEY Vs CKD. - monitor . - follow electrolytes 3- Elevated trop: EKGs reviewed. Flat trend n trop. likely demand ischemia - stress test when stable. - cont BB - cont asa 4- Hyperlipidemia: LDL 189 - cont statin 5- blurry vison : could 've been due to the severe HTN. ophth consult 6- DVT px : heparin sq I explained to him the importance of staying to adjust his BP meds, as very high BP can cause stroke that can disabling or fatal. he understands, but he states he does not care. 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 if he decides to leave, it has to be AMA .
[2019-07-30 13:51] VITALS: BMI 23.9
--- NOTE | 2019-07-30 14:22 | PN ---
Physical Exam: SUBJECTIVE: Patient seen and examined FABIÁN Complains that his blurry vision has persisted. Mild intermittent DOWNING. Denies CP for this admission. Expressed frustration that he isn't getting treatment. OBJECTIVE: Vital Signs Period Temp Pulse Resp BP Sys/Hameed Pulse Ox Last 24 Hr 97.9 F 70-79 11-18 136-194/65-112 98-98 GENERAL: The patient is awake, alert, and fully oriented, in no acute distress. HEAD: NC/AT. [place] of head with well healed wound EYES: PERRL, EOMI, sclera anicteric, conjunctiva clear. No ptosis. No obvious retinal hemorrhage on nondilated bedside opthalmoscopic exam ENT: Ears normal, nares patent, oropharynx clear without exudates, moist mucous membranes. NECK: Trachea midline, full range of motion, supple. LUNGS: Breath sounds equal, clear to auscultation bilaterally, no wheezes, no crackles, no accessory muscle use. HEART: Regular rate and rhythm, S1, S2 without murmur, rub or gallop. No delayed pulse ABDOMEN: Soft, nonTTP, nondistended, normoactive bowel sounds, no guarding, no rebound. No lower back bruits noted EXTREMITIES: 2+ pulses, warm, well-perfused, no edema. NEUROLOGICAL: Cranial nerves II through XII grossly intact. Normal speech. PSYCH: Normal mood, normal affect. SKIN: Warm, dry, normal turgor, no rashes or lesions noted Laboratory Results - last 24 hr 07/29/19 07/29/19 07/30/19 15:00 22:30 06:03 WBC 12.7 H RBC 3.97 L Hgb 12.9 Hct 36.5 MCV 92.0 MCH 32.6 MCHC 35.4 RDW 12.8 Plt Count 249 MPV 9.0 Absolute Neuts (auto) 9.2 H Neutrophils % 72.9 D Lymphocytes % 16.4 D Monocytes % 6.2 Eosinophils % 3.7 Basophils % 0.8 Nucleated RBC % 0 Sodium 136 Potassium 3.4 L Chloride 99 Carbon Dioxide 29 Anion Gap 8 BUN 32.7 H Creatinine 2.5 H Est GFR (CKD-EPI)AfAm 32.52 Est GFR (CKD-EPI)NonAf 28.06 Random Glucose 220 H Calcium 8.8 Phosphorus Magnesium Total Bilirubin AST ALT Alkaline Phosphatase Total Protein Albumin U Random Total Protein 94.1 H Urine Creatinine 57.0 Protein/Creatinin Ratio 1.7 07/30/19 06:03 WBC RBC Hgb Hct MCV MCH MCHC RDW Plt Count MPV Absolute Neuts (auto) Neutrophils % Lymphocytes % Monocytes % Eosinophils % Basophils % Nucleated RBC % Sodium 136 Potassium 3.3 L Chloride 101 Carbon Dioxide 27 Anion Gap 8 BUN 35.5 H Creatinine 2.4 H Est GFR (CKD-EPI)AfAm 34.16 Est GFR (CKD-EPI)NonAf 29.48 Random Glucose 136 H Calcium 8.7 Phosphorus 4.0 Magnesium 2.3 Total Bilirubin 0.5 AST 13 L ALT 16 Alkaline Phosphatase 104 Total Protein 6.4 Albumin 2.9 L U Random Total Protein Urine Creatinine Protein/Creatinin Ratio Active Medications Generic Name Dose Route Start Last Admin Trade Name Freq PRN Reason Stop Dose Admin Aspirin 81 mg 07/29/19 10:00 07/30/19 10:23 Asa - PO 81 mg DAILY ADALID Administration Atorvastatin Calcium 40 mg 07/28/19 22:00 07/29/19 21:16 Lipitor - PO 40 mg HS ADALID Administration Chlorhexidine Gluconate 1 applic 07/28/19 22:00 07/29/19 21:16 Hibiclens For Decolonization - TP 1 applic HS ADALID Administration Heparin Sodium (Porcine) 5,000 unit 07/28/19 22:00 07/30/19 06:28 Heparin - SQ 5,000 unit TID ADALID Administration Nicardipine HCl 25 mg/ 250 mls @ 25 mls/hr 07/29/19 14:58 07/30/19 07:00 Dextrose IVPB 0 mg/hr TITR ADALID 0 mls/hr Titration Protocol 2.5 MG/HR Labetalol HCl 200 mg 07/29/19 22:00 07/30/19 06:28 Normodyne - PO 200 mg TID ADALID Administration Mupirocin 1 applic 07/28/19 22:00 07/30/19 10:22 Bactroban Ointment (For Decolonization) - NS 08/02/19 21:59 1 applic BID ADALID Administration Nifedipine 60 mg 07/30/19 10:00 07/30/19 10:19 Procardia Xl - PO 60 mg DAILY ADALID Administration Triamterene 50 mg 07/29/19 19:15 07/30/19 10:22 Dyrenium - PO 50 mg DAILY ADALID Administration ASSESSMENT/PLAN: 54 y.o. M w/ PMHx. of HTN(non-compliance) presents for worsening blurry vision and headache. Pt. admitted for Hypertensive Emergency w/ SBP >200. Has troponinemia, possibly NSTEMI. Opthalm(Clari Chavez) consulted for blurry vision, says no intervention at this time and needs HTN control and outpatient Opthalmology follow-up. # Hypertensive Emergency vs Td Syndrome vs Renal Artery Stenosis vs Long- term Medication Nonadherence - s/p Labetalol 20mg x 2 and Norvasc 5mg, ASA 324mg - Initial BP 214/147--> persistently SBP >200 > CTH: ventricular dilation, focal encephalomalacia of Right frontal lobe, focal chronic infarct of R thalamus, R centrum > Echo: Moderate concentric LVH, EF: 55-60%, mild TR > UDS: neg - HTN regimen: -- Triamterene 50mg QD -- Nifedipine 60mg QD -- Labetalol 200mg TID # Acute Change in Vision --possibly 2/2 retinal hemorrhage - Opthalm(Graham Chavez) consulted: --as per phone discussion, no acute intervention; pt needs BP control and outpt Opthalm follow-up # NSTEMI > Trop: 0.11, 0.12, 0.09, 0.09, 0.10 > BNP: 9,593 > EKG: evolving changes with ST elevations in V1-V2, now in V1-V4 > CXR: neg - monitor serial EKGs and if pt symptomatic - Consult Cardio(Dr. Sweeney): -- stress test when BP stable # MEY? on CKD > UA: 3+ protein, glucose trace > HbA1c 6.3 > Protein:Cr 1.7 - Consult Nephro(Dr. Becerra) appreciated: -- check Protein:Cr -- triamterene for possible Td syndrome # HLD > Cholesterol: 265, LDL 189 - start Atorvastatin #FEN - Na controlled Diet #DVT Ppx. Hep SQ Visit type - Emergency Visit Emergency Visit: No - New Patient This patient is new to me today: No - Critical Care Critical Care patient: Yes Total Critical Care Time (in minutes): 35 Critical Care Statement: The care of this patient involved high complexity decision making to prevent further life threatening deterioration of the patient 's condition and/or to evaluate & treat vital organ system(s) failure or risk of failure. ATTENDING PHYSICIAN STATEMENT I saw and evaluated the patient. I reviewed the resident's note and discussed the case with the resident. I agree with the resident's findings and plan as documented. SUBJECTIVE: OBJECTIVE: ASSESSMENT AND PLAN:
[2019-07-30] MEDS: NICARDIPINE 25 MG in DEXTROSE 5%-WATER - 240 ML IVPB SCH (17:17)
--- NOTE | 2019-07-30 18:34 | PN ---
Progress Note, Physician History of Present Illness: Pt seen and examined at bedside. 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 He had dizziness this morning per the chart. He denies chest pain. - Current Medication List Current Medications: Active Medications Aspirin (Asa -) 81 mg PO DAILY [facility] Last Admin: 07/30/19 10:23 Dose: 81 mg Atorvastatin Calcium (Lipitor -) 40 mg PO HS [facility] Last Admin: 07/29/19 21:16 Dose: 40 mg Chlorhexidine Gluconate (Hibiclens For Decolonization -) 1 applic TP HS [facility] Last Admin: 07/29/19 21:16 Dose: 1 applic Heparin Sodium (Porcine) (Heparin -) 5,000 unit SQ TID [facility] Last Admin: 07/30/19 14:43 Dose: 5,000 unit Nicardipine HCl 25 mg/ (Dextrose) 250 mls @ 25 mls/hr IVPB TITR [facility]; Protocol Last Admin: 07/30/19 17:17 Dose: Not Given Labetalol HCl (Normodyne -) 200 mg PO TID [facility] Last Admin: 07/30/19 14:43 Dose: 200 mg Mupirocin (Bactroban Ointment (For Decolonization) -) 1 applic NS BID [facility] Stop: 08/02/19 21:59 Last Admin: 07/30/19 10:22 Dose: 1 applic Nifedipine (Procardia Xl -) 60 mg PO DAILY [facility] Last Admin: 07/30/19 10:19 Dose: 60 mg Triamterene (Dyrenium -) 50 mg PO DAILY [facility] Last Admin: 07/30/19 10:22 Dose: 50 mg - Objective Vital Signs: Vital Signs Temperature 98.3 F 07/30/19 10:20 Pulse Rate 81 07/30/19 18:12 Respiratory Rate 20 07/30/19 18:12 Blood Pressure 153/97 07/30/19 18:12 O2 Sat by Pulse Oximetry (%) 98 07/30/19 10:00 Constitutional: Yes: Calm Eyes: Yes: Conjunctiva Clear HENT: Yes: Atraumatic Neck: Yes: Supple Cardiovascular: Yes: S1, S2 Respiratory: Yes: CTA Bilaterally Gastrointestinal: Yes: Soft Genitourinary: Yes: WNL Musculoskeletal: Yes: WNL Edema: No Neurological: Yes: Oriented Psychiatric: Yes: Oriented Labs: CBC, BMP 02/08/20 06:03 07/30/19 06:03 INR, PTT INR 1.03 (0.83-1.09) 07/29/19 05:25 Assessment/Plan Current Medications Generic Name Dose Route Start Last Admin Trade Name Waldemar PRN Reason Stop Dose Admin Aspirin 81 mg 07/29/19 10:00 07/30/19 10:23 Asa - PO 81 mg DAILY [facility] Administration Atorvastatin Calcium 40 mg 07/28/19 22:00 07/29/19 21:16 Lipitor - PO 40 mg HS [facility] Administration Chlorhexidine Gluconate 1 applic 07/28/19 22:00 07/29/19 21:16 Hibiclens For Decolonization - TP 1 applic HS [facility] Administration Heparin Sodium (Porcine) 5,000 unit 07/28/19 22:00 07/30/19 14:43 Heparin - SQ 5,000 unit TID [facility] Administration Nicardipine HCl 25 mg/ 250 mls @ 25 mls/hr 07/29/19 14:58 07/30/19 17:17 Dextrose IVPB Not Given TITR [facility] Protocol 2.5 MG/HR Labetalol HCl 200 mg 07/29/19 22:00 07/30/19 14:43 Normodyne - PO 200 mg TID [facility] Administration Mupirocin 1 applic 07/28/19 22:00 07/30/19 10:22 Bactroban Ointment (For Decolonization) - NS 08/02/19 21:59 1 applic BID [facility] Administration Nifedipine 60 mg 07/30/19 10:00 07/30/19 10:19 Procardia Xl - PO 60 mg DAILY [facility] Administration Triamterene 50 mg 07/29/19 19:15 07/30/19 10:22 Dyrenium - PO 50 mg DAILY [facility] Administration Selected Entries 07/30/19 07/30/19 16:00 18:12 Blood Pressure 151/98 153/97 Laboratory Tests 07/28/19 07/28/19 07/28/19 12:15 12:15 21:00 WBC 12.9 H Potassium 2.8 L* 3.2 L Creatinine 2.1 H Urine Protein Urine Blood 07/28/19 07/29/19 07/29/19 22:30 05:25 05:25 WBC 10.1 H Potassium 3.1 L Creatinine 2.5 H Urine Protein 3+ H Urine Blood Negative 07/29/19 07/29/19 05:25 15:00 WBC Potassium 3.1 L 3.4 L Creatinine 2.4 H 2.5 H Urine Protein Urine Blood Impression 1. HTN 2. ckd vs jamir 3. proteinuria 4. 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
[2019-07-30] MEDS: ATORVASTATIN CA 40 MG TABLET (FP) PO SCH (21:08)
[2019-07-30] MEDS: CHLORHEXIDINE GLUCONATE 4% CLEANSER FOR DECOLONIZATION TP SCH (21:09)
--- NOTE | 2019-07-30 22:08 | PN ---
Progress Note (short form) - Note Progress Note: PULM/CCM Pt Seen & Examined in ICU. CA+OX3, NAD, pt requesting to elope AMA. Active Medications Aspirin (Asa -) 81 mg PO DAILY [facility] Last Admin: 07/30/19 10:23 Dose: 81 mg Atorvastatin Calcium (Lipitor -) 40 mg PO HS [facility] Last Admin: 07/30/19 21:08 Dose: 40 mg Chlorhexidine Gluconate (Hibiclens For Decolonization -) 1 applic TP HS [facility] Last Admin: 07/30/19 21:09 Dose: 1 applic Heparin Sodium (Porcine) (Heparin -) 5,000 unit SQ TID [facility] Last Admin: 07/30/19 21:08 Dose: 5,000 unit Nicardipine HCl 25 mg/ (Dextrose) 250 mls @ 25 mls/hr IVPB TITR [facility]; Protocol Last Admin: 07/30/19 17:17 Dose: Not Given Labetalol HCl (Normodyne -) 200 mg PO TID [facility] Last Admin: 07/30/19 14:43 Dose: 200 mg Mupirocin (Bactroban Ointment (For Decolonization) -) 1 applic NS BID [facility] Stop: 08/02/19 21:59 Last Admin: 07/30/19 21:08 Dose: 1 applic Nifedipine (Procardia Xl -) 60 mg PO DAILY [facility] Last Admin: 07/30/19 10:19 Dose: 60 mg Triamterene (Dyrenium -) 50 mg PO DAILY [facility] Last Admin: 07/30/19 10:22 Dose: 50 mg Vital Signs Period Temp Pulse Resp BP Sys/Hameed Pulse Ox Last 24 Hr 97.9 F-98.3 F 70-81 -20 136-188/65-115 98 Intake & Output 07/27/19 07/28/19 07/29/19 07/30/19 23:59 23:59 23:59 23:59 Intake Total 240 1270 600 Output Total 100 1300 800 Balance 140 -30 -200 Weight 73.482 kg 73.482 kg GEN: Well nourished middle aged man in NAD HEENT: Grossly NCAT, PERRL, an-icteric, Dry MMM PULM: CTAB CV: nml S1 S2, RR, unable to appreciate any G/R/M ABD: + BS, S/S N/T N/D X4Q EXT: + Pulses, WWPX4, (-) edema SKIN: No obvious rashes, lesions, or ulcers CBC, BMP 07/30/19 06:03 07/30/19 06:03 Urine Test Results Urine Color Yellow 07/28/19 22:30 Urine Appearance Clear 07/28/19 22:30 Urine pH 5.5 (5.0-8.0) 07/28/19 22:30 Ur Specific Willard 1.019 (1.010-1.035) 07/28/19 22:30 Urine Protein 3+ (NEGATIVE) H 07/28/19 22:30 Urine Glucose (UA) Trace (NEGATIVE) 07/28/19 22:30 Urine Ketones Negative (NEGATIVE) 07/28/19:30 Urine Blood Negative (NEGATIVE) 07/28/19:30 Urine Nitrite Negative (NEGATIVE) 07/28/19:30 Urine Bilirubin Negative (NEGATIVE) 07/28/19 22:30 Ur Leukocyte Esterase Negative (NEGATIVE) 07/28/19 22:30 RECENT STUDIES TO NOTE: RENAL US 07/30: Impression: Normal imaging survey both kidneys, no suspicious findings CXR 07/28: No evidence of active pulmonary disease. NCHCT 07/28: Mild volume loss and ventricular dilatation. Focal encephalomalacia in the right anterior/inferior frontal lobe and possibly a smaller focus on the left. Focal chronic infarct in the anterior right thalamus/periventricular white matter. Focal likely chronic infarct in the right centrum semiovale. No mass lesion or gross acute infarct are identified. Correlate clinically to determine further evaluation and follow-up ASSESS: -Hypertensive Urgency -MEY -Hypokalemia r/o Td PLAN: -PO anti-HTNs -F/u RENAL US -Follow Neuro exam -OOB to chair -I's & O's -Trend BUN/Cr -Replete e-lytes prn -Secondary workup per primary team -VTE prophylaxis -Transfer to Floor [facility] ICU PULM/CCM [id number]
[2019-07-31 06:38] LABS: BILIRUBIN,TOTAL 0.3 mg/dL (0.2-1); BLOOD UREA NITROGEN 45.8 mg/dL (7-18); CALCIUM 8.5 mg/dL (8.5-10.1); CREATININE 2.7 mg/dL (0.55-1.3); MAGNESIUM 2.3 mg/dL (1.8-2.4); TOT PROT 6.1 g/dl (6.4-8.2)
[2019-07-31] MEDS: LABETALOL HCL 200 MG TABLET (FP) PO SCH ×3 (07:26→21:43)
[2019-07-31] MEDS: HEPARIN NA (PORCINE) 5,000 UNITS/ML 1ML VIAL SQ SCH ×3 (07:27→21:42)
[2019-07-31] MEDS ORDERED: PT OWN MED DRAWER 7, Y5N ONE ×2 (10:10→19:00)
--- NOTE | 2019-07-31 10:30 | PN ---
Progress Note, Physician History of Present Illness: No complaints this AM He denies dizziness or chest pains Tele: negative - Current Medication List Current Medications: Active Medications Aspirin (Asa -) 81 mg PO DAILY [facility] Last Admin: 07/30/19 10:23 Dose: 81 mg Atorvastatin Calcium (Lipitor -) 40 mg PO HS [facility] Last Admin: 07/30/19 21:08 Dose: 40 mg Chlorhexidine Gluconate (Hibiclens For Decolonization -) 1 applic TP HS [facility] Last Admin: 07/30/19 21:09 Dose: 1 applic Heparin Sodium (Porcine) (Heparin -) 5,000 unit SQ TID [facility] Last Admin: 07/31/19 07:27 Dose: 5,000 unit Labetalol HCl (Normodyne -) 200 mg PO TID [facility] Last Admin: 07/31/19 07:26 Dose: Not Given Mupirocin (Bactroban Ointment (For Decolonization) -) 1 applic NS BID [facility] Stop: 08/02/19 21:59 Last Admin: 07/30/19 21:08 Dose: 1 applic Nifedipine (Procardia Xl -) 60 mg PO DAILY [facility] Last Admin: 07/30/19 10:19 Dose: 60 mg Triamterene (Dyrenium -) 50 mg PO DAILY [facility] Last Admin: 07/30/19 10:22 Dose: 50 mg - Objective Vital Signs: Vital Signs Temperature 97.6 F 07/30/19 22:00 Pulse Rate 81 07/31/19 08:00 Respiratory Rate 28 H 07/31/19 08:00 Blood Pressure 145/95 07/31/19 08:00 O2 Sat by Pulse Oximetry (%) 96 07/30/19 22:00 Constitutional: Yes: No Distress Labs: CBC, BMP 07/30/19 06:03 07/31/19 05:25 INR, PTT INR 1.03 (0.83-1.09) 07/29/19 05:25 Assessment/Plan Hypertensive urgency Chronic hypertensive heart disease Likely CKD secondary to chronic HTN Abnl ECG- most likely due to LVH/chronic HTN heart dz Equivocal TnI - likely demand ischemia (mild) in setting of uncontrolled HTN REC: 1. BP improved now on PO Labatelol 200 TID and Nifedipine 60mg and Triamterene 50mg 2. As per Dr. Sweeney: agree with recommending stress MPI for further CV risk stratification. I discussed this with the patient and he became upset. Will discuss with PMD.
[2019-07-31] MEDS: ASPIRIN 81 MG CHEWABLE TABLETS PO SCH (10:38)
[2019-07-31] MEDS: NIFEdipine E.R. 30 MG TABLET PO SCH (10:38)
[2019-07-31] MEDS: MUPIROCIN 2% TOPICAL OINTMENT FOR DECOLONIZATION NS SCH ×2 (10:39→21:43)
[2019-07-31] MEDS: TRIAMTERENE 50 MG CAPSULE PO SCH (10:39)
--- NOTE | 2019-07-31 14:41 | PN ---
Progress Note (short form) - Note Progress Note: Progress Note Pulm/CCM Pt seen and examined in ICU. OOB and ambulating in room w/o c/o dizziness or headache. SBP 160's-170's. Seen by cadiology. Possible d/c home today. Active Medications Aspirin (Asa -) 81 mg PO DAILY [facility] Last Admin: 07/31/19 10:38 Dose: 81 mg Atorvastatin Calcium (Lipitor -) 40 mg PO HS [facility] Last Admin: 07/30/19 21:08 Dose: 40 mg Chlorhexidine Gluconate (Hibiclens For Decolonization -) 1 applic TP HS [facility] Last Admin: 07/30/19 21:09 Dose: 1 applic Heparin Sodium (Porcine) (Heparin -) 5,000 unit SQ TID [facility] Last Admin: 07/31/19 14:43 Dose: 5,000 unit Labetalol HCl (Normodyne -) 200 mg PO TID [facility] Last Admin: 07/31/19 14:43 Dose: 200 mg Mupirocin (Bactroban Ointment (For Decolonization) -) 1 applic NS BID [facility] Stop: 08/02/19 21:59 Last Admin: 07/31/19 10:39 Dose: 1 applic Nifedipine (Procardia Xl -) 60 mg PO DAILY [facility] Last Admin: 07/31/19 10:38 Dose: 60 mg Triamterene (Dyrenium -) 50 mg PO DAILY [facility] Last Admin: 07/31/19 10:39 Dose: 50 mg Vital Signs Period Temp Pulse Resp BP Sys/Hameed Pulse Ox Last 24 Hr 97.6 F-97.7 F 73-81 13-28 126-179/66-103 96-96 Intake & Output 07/28/19 07/29/19 07/30/19 07/31/19 23:59 23:59 23:59 23:59 Intake Total 240 1270 1100 520 Output Total 100 1300 800 Balance 140 -30 300 520 Weight 73.482 kg 73.482 kg GEN: Well nourished middle aged man in NAD NEURO: Anxious HEENT: Grossly NCAT, PERRL, an-icteric, Dry MMM PULM: CTAB CV: nml S1 S2, RR, unable to appreciate any G/R/M ABD: + BS, S/S N/T N/D X4Q EXT: + Pulses, WWPX4, (-) edema SKIN: No obvious rashes, lesions, or ulcers RECENT STUDIES TO NOTE: RENAL US 07/30: Impression: Normal imaging survey both kidneys, no suspicious findings CXR 07/28: No evidence of active pulmonary disease. NCHCT 07/28: Mild volume loss and ventricular dilatation. Focal encephalomalacia in the right anterior/inferior frontal lobe and possibly a smaller focus on the left. Focal chronic infarct in the anterior right thalamus/periventricular white matter. Focal likely chronic infarct in the right centrum semiovale. No mass lesion or gross acute infarct are identified. Correlate clinically to determine further evaluation and follow-up ASSESS: -Hypertensive Urgency -MEY -Hypokalemia r/o Td PLAN: -PO anti-HTNs -F/u RENAL US -Follow Neuro exam -OOB to chair -I's & O's -Trend BUN/Cr -Replete e-lytes prn -Secondary workup per primary team -VTE prophylaxis -Consider transfer to floor or d/c home Mile Dow, COLLIN[facility]- Additional CC's: Otto Rodriguez
--- NOTE | 2019-07-31 17:49 | PN ---
Progress Note, Physician History of Present Illness: Pt seen and examined at bedside. He is awake and alert. He does get very anxious at times. - Current Medication List Current Medications: Active Medications Aspirin (Asa -) 81 mg PO DAILY [facility] Last Admin: 07/31/19 10:38 Dose: 81 mg Atorvastatin Calcium (Lipitor -) 40 mg PO HS [facility] Last Admin: 07/30/19 21:08 Dose: 40 mg Chlorhexidine Gluconate (Hibiclens For Decolonization -) 1 applic TP HS [facility] Last Admin: 07/30/19 21:09 Dose: 1 applic Heparin Sodium (Porcine) (Heparin -) 5,000 unit SQ TID [facility] Last Admin: 07/31/19 14:43 Dose: 5,000 unit Labetalol HCl (Normodyne -) 200 mg PO TID [facility] Last Admin: 07/31/19 14:43 Dose: 200 mg Mupirocin (Bactroban Ointment (For Decolonization) -) 1 applic NS BID [facility] Stop: 08/02/19 21:59 Last Admin: 07/31/19 10:39 Dose: 1 applic Nifedipine (Procardia Xl -) 60 mg PO DAILY [facility] Last Admin: 07/31/19 10:38 Dose: 60 mg Triamterene (Dyrenium -) 50 mg PO DAILY [facility] Last Admin: 07/31/19 10:39 Dose: 50 mg - Objective Vital Signs: Vital Signs Temperature 97.7 F 07/31/19 10:00 Pulse Rate 74 07/31/19 15:02 Respiratory Rate 20 07/31/19 15:02 Blood Pressure 154/94 07/31/19 15:02 O2 Sat by Pulse Oximetry (%) 96 07/31/19 10:00 Constitutional: Yes: Anxious Eyes: Yes: Conjunctiva Clear HENT: Yes: Atraumatic Cardiovascular: Yes: S1, S2 Respiratory: Yes: CTA Bilaterally Gastrointestinal: Yes: Soft Genitourinary: Yes: WNL Musculoskeletal: Yes: WNL Edema: No Neurological: Yes: Oriented Psychiatric: Yes: Oriented Labs: CBC, BMP 07/30/19 06:03 07/31/19 05:25 INR, PTT INR 1.03 (0.83-1.09) 07/29/19 05:25 Assessment/Plan Current Medications Generic Name Dose Route Start Last Admin Trade Name Freq PRN Reason Stop Dose Admin Aspirin 81 mg 07/29/19 10:00 07/31/19 10:38 Asa - PO 81 mg DAILY [facility] Administration Atorvastatin Calcium 40 mg 07/28/19 22:00 07/30/19 21:08 Lipitor - PO 40 mg HS [facility] Administration Chlorhexidine Gluconate 1 applic 07/28/19 22:00 07/30/19 21:09 Hibiclens For Decolonization - TP 1 applic HS [facility] Administration Heparin Sodium (Porcine) 5,000 unit 07/28/19 22:00 07/31/19 14:43 Heparin - SQ 5,000 unit TID [facility] Administration Labetalol HCl 200 mg 07/29/19 22:00 07/31/19 14:43 Normodyne - PO 200 mg TID [facility] Administration Mupirocin 1 applic 07/28/19 22:00 07/31/19 10:39 Bactroban Ointment (For Decolonization) - NS 08/02/19 21:59 1 applic BID [facility] Administration Nifedipine 60 mg 07/30/19 10:00 07/31/19 10:38 Procardia Xl - PO 60 mg DAILY [facility] Administration Triamterene 50 mg 07/29/19 19:15 07/31/19 10:39 Dyrenium - PO 50 mg DAILY [facility] Administration Impression 1. HTN 2. ckd vs jamir 3. proteinuria 4. hypokalemia r/o Td Plan - cont current meds - bp is actually much better controlled however is dose surge up when he gets agitated - pt for stress test tomorrow - discussed with medical team - follow ultrasound - can titrate labetolol as needed - follow renin and sowmya
--- NOTE | 2019-07-31 17:53 | DS ---
Physical Examination Vital Signs: Vital Signs Temperature 97.7 F 07/31/19 10:00 Pulse Rate 74 07/31/19 15:02 Respiratory Rate 20 07/31/19 15:02 Blood Pressure 154/94 07/31/19 15:02 O2 Sat by Pulse Oximetry (%) 96 07/31/19 10:00 Findings/Remarks: feels better . no pain ,no SOB , no N>V . 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 per RN: he was yelling and cursing on phone all day PE: VS reviewed. NAD ,awake, alert, comfortable. CV: RRR, 2/6 SM at apex. Abd: soft, NT, ND, NL BS. Ext: No edema or erythema. Labs: CBC, BMP 07/30/19 06:03 07/31/19 05:25 Discharge Summary Problems reviewed: Yes Reason For Visit: HYPERTENSIVE EMERGENCY Current Active Problems Elevated troponin (Acute) Hyperlipidemia (Acute) Hypertensive emergency (Chronic) Hospital Course: 54 y/o man with no medical f/u who presented with DOWNING, sweating, and blurry vision and was found to have HTN emergency. on admission his BP was very elevated along with elevated cr and elevated trop. He was admitted to ICU but he did not require any drips. he was managed with po and IV pushes of HTn meds. due to persistent hypokalemia he was suspected to have either Primary hyperaldosteronemia or Td syndrom ( due to possible met alkalosis ) . aldosterone and renin levels were obtaiend and results are pending at this time . Hi BP improved but earlier today he was very aggravated which reflected on his BP. now it is 154/70 He was referred to Dr. becerra to cont his w/u as out pt . also needs blood work in 1 week . he is to be dc on nifedipine, labetalol and triamterine he was seen by card due to elevated trop , whcih was thought to be due type II ischemia. stress test was recommended but patient prefers to get it as out pt . case was d/w Dr. Mascorro who agrees with out pt testing . he was referred to Dr. Sweeney . echo showed LVH with trace MR . he is to cont aspirin until he follows with card for stress. after that he will be instructed He was found to have Cr of 2, and this was thougth to be due to chronci HTN. it is 2.7 on day of dc . f/u with renal at dc he was started on lipitor due to elevated LDL he complaiend of blurry vision on admission. limited fundoscopic exam did not show any bleeding. Ophth was not able to see patient in hospital . he was advised to see his gastroenterology nurse practitioner as out pt All this was explained to patient before dc. he also understands he needs to pick his meds up today . he was referred to resident's clinic . Condition: Improved - Instructions Diet, Activity, Other Instructions: you were diagnosed with very high blood pressure - please take nifedipine ,Triamterine , and labetalol as prescribed. - you need further work up on why you have hypertension, and results of blood work donw here need to be followed . so please see Dr. Becerra, the kidney doctor , for that in a week - follow with your gastroenterology nurse practitioner in a week to further evaluate your eyes. 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 it can cause muscle aches and liver injury , so reports any unusual symptoms, aches, or change in skin color to your doctor - please follow with your primary doctor, if you don't have one , you can make an appointment with Dr. Molina - check your blood pressure daily. call MDD if > 160/100 or < 100/50 - a cuff was prescribed to you - you need to see the heart doctor, Dr. Sweeney to get a stress test done . in mean time take aspirin daily ( over the counter ) , until instructed otherwise by the heart doctor - you need blood work in 1 week it is important you follow up . to avoid a stroke or a heart attack Referrals: Tucker Molina MD [Staff Physician] - Kojo Sweeney MD [Staff Physician] - Tong Damico [Primary Care Provider] - Stu Becerra MD [Staff Physician] - 1 Week Disposition: AGAINST MEDICAL ADVICE - Home Medications Comprehensive Discharge Medication List: Ambulatory Orders Aspirin [ASA -] 81 mg PO DAILY #30 tab.chew 07/31/19 Atorvastatin Ca [Lipitor] 40 mg PO HS #30 tablet 07/31/19 Labetalol HCl [Normodyne -] 200 mg PO TID #90 tablet 07/31/19 Medical Supply, Miscellaneous [Blood Pressure Cuff] 1 each [facility] DAILY #1 each 03/11 Nifedipine ER [Procardia XL -] 60 mg PO DAILY #30 tab.er.24 07/31/19 Triamterene [Dyrenium -] 50 mg PO DAILY #30 capsule 07/31/19 This patient is new to me today: No Emergency Visit: Yes ED Registration Date: 07/28/19 Care time: The patient presented to the Emergency Department on the above date and was hospitalized for further evaluation of their emergent condition. Critical Care patient: No - Discharge Referral Referred to [facility] Med P.C.: No
[2019-07-31] MEDS ORDERED: CHLORHEXIDINE GLUCONATE 4% CLEANSER FOR DECOLONIZATION TP SCH (22:00)
[2019-07-31] MEDS ORDERED: ATORVASTATIN CA 40 MG TABLET (FP) PO SCH (22:00)
[2019-08-01] MEDS: HEPARIN NA (PORCINE) 5,000 UNITS/ML 1ML VIAL SQ SCH ×2 (06:41→14:55)
[2019-08-01] MEDS: LABETALOL HCL 200 MG TABLET (FP) PO SCH ×2 (06:41→15:33)
--- NOTE | 2019-08-01 09:24 | PN ---
Progress Note, Physician - Current Medication List Current Medications: Active Medications Aspirin (Asa -) 81 mg PO DAILY [facility] Atorvastatin Calcium (Lipitor -) 40 mg PO HS [facility] Last Admin: 07/31/19 21:43 Dose: 40 mg Chlorhexidine Gluconate (Hibiclens For Decolonization -) 1 applic TP HS [facility] Last Admin: 07/31/19 21:43 Dose: Not Given Heparin Sodium (Porcine) (Heparin -) 5,000 unit SQ TID [facility] Last Admin: 08/01/19 06:41 Dose: 5,000 unit Labetalol HCl (Normodyne -) 200 mg PO TID [facility] Last Admin: 08/01/19 06:41 Dose: Not Given Mupirocin (Bactroban Ointment (For Decolonization) -) 1 applic NS BID [facility] Stop: 08/02/19 21:59 Last Admin: 07/31/19 21:43 Dose: Not Given Nifedipine (Procardia Xl -) 60 mg PO DAILY [facility] Last Admin: 08/01/19 09:08 Dose: 60 mg Triamterene (Dyrenium -) 50 mg PO DAILY [facility] Last Admin: 08/01/19 09:06 Dose: 50 mg - Objective Vital Signs: Vital Signs Temperature 97.9 F 08/01/19 07:00 Pulse Rate 71 08/01/19 07:00 Respiratory Rate 11 08/01/19 07:00 Blood Pressure 138/85 08/01/19 07:00 O2 Sat by Pulse Oximetry (%) 96 07/31/19 22:00 Labs: CBC, BMP 07/30/19 06:03 07/31/19 05:25 INR, PTT INR 1.03 (0.83-1.09) 07/29/19 05:25 Assessment/Plan Echo 08/11: mod LVH (conc), nl EF. nl RV. nl valve fxn. Hypertensive urgency Chronic hypertensive heart disease Likely CKD secondary to chronic HTN Abnl ECG- most likely due to LVH/chronic HTN heart dz Equivocal TnI - likely demand ischemia (mild) in setting of uncontrolled HTN Hypokalemia REC: -BP improved, stable: cont Labatelol 200 TID. Nifedipine 60mg and Triamterene 50mg -in light of ECG changes and indeterminate trop elevation, stress MPI for CV risk stratification was ordered -creat worsened today--consider decr traimterene dose; defer to renal -f/u renin/sowmya
[2019-08-01] MEDS ORDERED: ASPIRIN 81 MG CHEWABLE TABLETS PO SCH (10:00)
[2019-08-01] MEDS ORDERED: TRIAMTERENE 50 MG CAPSULE PO SCH (10:00)
[2019-08-01] MEDS ORDERED: NIFEdipine E.R 60 MG TABLET PO SCH (10:00)
[2019-08-01] MEDS ORDERED: REGADENOSON 0.4 MG/5 ML PRE-FILLED SYRINGE IVPUSH ONE ×2 (11:39→11:45)
[2019-08-01] MEDS: MUPIROCIN 2% TOPICAL OINTMENT FOR DECOLONIZATION NS SCH (13:16)
[2019-08-01 13:49] VITALS: TEMP 98
--- NOTE | 2019-08-01 14:17 | PN ---
Progress Note (short form) - Note Progress Note: Pt. stayed overnight to have stress test in AM. No acute events overnight. Vital Signs Period Temp Pulse Resp BP Sys/Hameed Pulse Ox Last 24 Hr 97.9 F-98.1 F 71-89 11-23 126-167/81-96 96-97 Current Medications Aspirin (Asa -) 81 mg PO DAILY [facility] Last Admin: 08/01/19 13:15 Dose: 81 mg Atorvastatin Calcium (Lipitor -) 40 mg PO HS [facility] Last Admin: 07/31/19 21:43 Dose: 40 mg Chlorhexidine Gluconate (Hibiclens For Decolonization -) 1 applic TP HS [facility] Last Admin: 07/31/19 21:43 Dose: Not Given Heparin Sodium (Porcine) (Heparin -) 5,000 unit SQ TID [facility] Last Admin: 08/01/19 06:41 Dose: 5,000 unit Labetalol HCl (Normodyne -) 200 mg PO TID [facility] Last Admin: 08/01/19 06:41 Dose: Not Given Mupirocin (Bactroban Ointment (For Decolonization) -) 1 applic NS BID [facility] Stop: 08/02/19 21:59 Last Admin: 08/01/19 13:16 Dose: Not Given Nifedipine (Procardia Xl -) 60 mg PO DAILY [facility] Last Admin: 08/01/19 09:08 Dose: 60 mg Triamterene (Dyrenium -) 50 mg PO DAILY [facility] Last Admin: 08/01/19 09:06 Dose: 50 mg PE: lying in bed, no acute distress MM RRR, S1 and S2 present CTAB no edema, no calf tendernes, 2+ radial pulses Pt. is a 54 y.o. M w/ PMHx. of HTN (however Pt. does not take any medications) presents for worsening blurry vision and headache. Pt. admitted for Hypertensive Emergency Exercise stress test converted to MPI because Pt. was not olga to achieve maximal HR 2/2 Labetalol therapy. Stress test showed EF of 50% (mildly reduced LV fxn with regional WMA), small anteroapical reversible defect, and inferobasal fixed defect). Pt.'s insurace did not cover Triamterene, therefore Amiloride 2.5mg was substituted.
--- NOTE | 2019-08-01 14:41 | PN ---
Progress Note, Physician History of Present Illness: Pt seen and examined at bedside. He is awake and alert. He feels much better. - Current Medication List Current Medications: Active Medications Aspirin (Asa -) 81 mg PO DAILY [facility] Last Admin: 08/01/19 13:15 Dose: 81 mg Atorvastatin Calcium (Lipitor -) 40 mg PO HS [facility] Last Admin: 07/31/19 21:43 Dose: 40 mg Chlorhexidine Gluconate (Hibiclens For Decolonization -) 1 applic TP HS [facility] Last Admin: 07/31/19 21:43 Dose: Not Given Heparin Sodium (Porcine) (Heparin -) 5,000 unit SQ TID [facility] Last Admin: 08/01/19 06:41 Dose: 5,000 unit Labetalol HCl (Normodyne -) 200 mg PO TID [facility] Last Admin: 08/01/19 06:41 Dose: Not Given Mupirocin (Bactroban Ointment (For Decolonization) -) 1 applic NS BID [facility] Stop: 08/02/19 21:59 Last Admin: 08/01/19 13:16 Dose: Not Given Nifedipine (Procardia Xl -) 60 mg PO DAILY [facility] Last Admin: 08/01/19 09:08 Dose: 60 mg Triamterene (Dyrenium -) 50 mg PO DAILY [facility] Last Admin: 08/01/19 09:06 Dose: 50 mg - Objective Vital Signs: Vital Signs Temperature 98 F 08/01/19 08:00 Pulse Rate 89 08/01/19 12:30 Respiratory Rate 12 08/01/19 12:30 Blood Pressure 145/84 08/01/19 12:30 O2 Sat by Pulse Oximetry (%) 97 08/01/19 09:00 Constitutional: Yes: Calm Eyes: Yes: Conjunctiva Clear HENT: Yes: Atraumatic Cardiovascular: Yes: S1, S2 Respiratory: Yes: CTA Bilaterally Gastrointestinal: Yes: Soft Genitourinary: Yes: WNL Musculoskeletal: Yes: WNL Edema: No Integumentary: Yes: WNL Neurological: Yes: Oriented Psychiatric: Yes: Oriented Labs: CBC, BMP 07/30/19 06:03 INR, PTT INR 1.03 (0.83-1.09) 07/29/19 05:25 Assessment/Plan Current Medications Generic Name Dose Route Start Last Admin Trade Name Freq PRN Reason Stop Dose Admin Aspirin 81 mg 08/01/19 10:00 08/01/19 13:15 Asa - PO 81 mg DAILY [facility] Administration Atorvastatin Calcium 40 mg 07/31/19 22:00 07/31/19 21:43 Lipitor - PO 40 mg HS [facility] Administration Chlorhexidine Gluconate 1 applic 07/31/19 22:00 07/31/19 21:43 Hibiclens For Decolonization - TP Not Given HS [facility] Heparin Sodium (Porcine) 5,000 unit 07/31/19 22:00 08/01/19 06:41 Heparin - SQ 5,000 unit TID [facility] Administration Labetalol HCl 200 mg 07/31/19 22:00 08/01/19 06:41 Normodyne - PO Not Given TID [facility] Mupirocin 1 applic 07/31/19 22:00 08/01/19 13:16 Bactroban Ointment (For Decolonization) - NS 08/02/19 21:59 Not Given BID [facility] Nifedipine 60 mg 08/01/19 10:00 08/01/19 09:08 Procardia Xl - PO 60 mg DAILY [facility] Administration Triamterene 50 mg 08/01/19 10:00 08/01/19 09:06 Dyrenium - PO 50 mg DAILY [facility] Administration Impression 1. HTN 2. ckd vs jamir 3. proteinuria 4. hypokalemia r/o Td Plan - bp improved - potassium stable - triamterene not covered by insurance, can give amiloride - pt had stress test today - can see in office - follow renin and sowmya
[2019-08-01 14:46] LABS: BLOOD UREA NITROGEN 37.5 mg/dL (7-18); CALCIUM 9.1 mg/dL (8.5-10.1); CREATININE 2.4 mg/dL (0.55-1.3); POTASSIUM 4.3 mmol/L (3.5-5.1)
--- NOTE | 2019-08-01 14:47 | PN ---
Teaching Attending Note Name of Resident: Hima Siddiqui ATTENDING PHYSICIAN STATEMENT I saw and evaluated the patient. I reviewed the resident's note and discussed the case with the resident. I agree with the resident's findings and plan as documented. SUBJECTIVE: no pain no sob , no fever or chills OBJECTIVE: VS reviewed. NAD ,awake, alert, comfortable. CV: RRR, 2/6 SM at apex. Abd: soft, NT, ND, NL BS. Ext: No edema or erythema. ASSESSMENT AND PLAN: patient decided to stay for stress test stress test results were noted. small area or ischemia.
--- NOTE | 2019-08-01 15:43 | PN ---
Progress Note (short form) - Note Progress Note: s: no chest pain, palps dizziness, dyspnea Current Medications Aspirin (Asa -) 81 mg PO DAILY [facility] Last Admin: 08/01/19 13:15 Dose: 81 mg Atorvastatin Calcium (Lipitor -) 40 mg PO HS [facility] Last Admin: 07/31/19 21:43 Dose: 40 mg Chlorhexidine Gluconate (Hibiclens For Decolonization -) 1 applic TP HS [facility] Last Admin: 07/31/19 21:43 Dose: Not Given Heparin Sodium (Porcine) (Heparin -) 5,000 unit SQ TID [facility] Last Admin: 08/01/19 14:55 Dose: 5,000 unit Labetalol HCl (Normodyne -) 200 mg PO TID [facility] Last Admin: 08/01/19 15:33 Dose: Not Given Mupirocin (Bactroban Ointment (For Decolonization) -) 1 applic NS BID [facility] Stop: 08/02/19 21:59 Last Admin: 08/01/19 13:16 Dose: Not Given Nifedipine (Procardia Xl -) 60 mg PO DAILY [facility] Last Admin: 08/01/19 09:08 Dose: 60 mg Triamterene (Dyrenium -) 50 mg PO DAILY [facility] Last Admin: 08/01/19 09:06 Dose: 50 mg Vital Signs Period Temp Pulse Resp BP Sys/Hameed Pulse Ox Last 24 Hr 97.9 F-98.1 F 71-89 11-23 126-167/81-96 96-97 NAD NCAT rrr, nl s1, s2, no murmur CTAB soft, nt, nd +bs no edema aox3 not agitated no jaundice, diaphoresis tele: sinus Assessment/Plan Hypertensive urgency Chronic hypertensive heart disease Likely CKD secondary to chronic HTN Abnl ECG- most likely due to LVH/chronic HTN heart dz Equivocal TnI - likely demand ischemia (mild) in setting of uncontrolled HTN REC: 1. BP improved now on PO Labatelol 200 TID and Nifedipine 60mg and Triamterene 50mg 2. mibi shows small area of mild anteroapical ischemia 3. low risk study, now asymptomatic, defer further cardiac testing at this point. discussed with patient, recommend aggressive risk factor modification, BP control as above, cont aspirin and statin stable for dc from cardiac perspective
[2019-08-01 15:52] VITALS: BP 152/92; PULSE 87
[2019-08-04 16:08] LABS: RENIN ACTIVITY(PRA) 14.217 ng/mL/hr (0.167-5.380)
== END 2019-08-01 17:15 | disposition home or self-care (01) | DRG 199 ==
LOC: JER 11:40 → JERBED 15:56 → JICU 19:38 → J2W 07-31 20:51
PROVIDERS: ATTEND Internal Medicine
DX: I16.1 Hypertensive emergency (principal); N17.9 Acute kidney failure, unspecified; E87.1 Hypo-osmolality and hyponatremia; I24.8 Other forms of acute ischemic heart disease; G93.89 Other specified disorders of brain; I12.9 Hypertensive chronic kidney disease with stage 1 through stage 4 chronic kidney disease, or unspecified chronic kidney disease; E87.6 Hypokalemia; N18.9 Chronic kidney disease, unspecified; E78.5 Hyperlipidemia, unspecified; Z91.14 Patient's other noncompliance with medication regimen; H53.8 Other visual disturbances
CPT/HCPCS: 36415; 70450-TC; 71045-TC-FY; 76775-TC; 78452-TC; 80048; 80053; 80061; 80307; 81003; 82088; 82550; 82570; 83036; 83721; 83735; 83880; 84100; 84156; 84244; 84443; 84484; 85025; 85610; 93005; 93010; 93017; 93306-TC; 99285-25; A9502; J1644; J2785; J7030